=== PATIENT | female | born 1980 | race Caucasian/White ===

== ENCOUNTER 2025-03-22 06:28 | Emergency (ER) | payer OTHER, SELFPAY ==
[2025-03-22] VITALS (7 sets, daily range): BP systolic 127–135; BP diastolic 63–88; PULSE 73–128; RESP 16–22; TEMP 36.4–37.1; O2SAT 94–100
--- NOTE | ~2025-03-22 | CT_ITS ---
EXAMINATION: CT abdomen pelvis w con DATE: 03/22/2025 08:55 INDICATION: Nausea and vomiting. TECHNIQUE: Computed tomography (CT) of the abdomen and pelvis was performed with 100 cc Omnipaque 350 intravenous contrast. The dose-length product was 1580.03 mGy-cm. Automated exposure control and ite rative reconstruction technique were employed. COMPARISON: None. FINDINGS: Lung bases unremarkable. No significant pleural or pericardial effusion. Heart size normal. There is a 3.3 cm low-density mass of the right hepatic lobe adjacent to the falciform ligament. The re is a smaller adjacent mass, not well demonstrated. The spleen, pancreas, adrenal glands and kidney s are unremarkable. Small fat-containing umbilical hernia. No abnormal pelvic masses or fluid collect ions. Colonic diverticulosis without evidence for diverticulitis. No free air. No focal lytic or paddy tic lesions. Mild lumbar spondylosis. Mild thickening of the distal esophagus, suspicious for esophag itis. IMPRESSION: 1. Hypovascular 3.3 cm liver mass of the right hepatic lobe. Recommend correlation with MRI of the ab domen without and with contrast for further assessment. Cannot exclude malignancy. 2: Mild thickening of the distal esophagus, suspicious for esophagitis. Reviewed, dictated and finalized at location B. IMPRESSION: 1. Hypovascular 3.3 cm liver mass of the right hepatic lobe. Recommend correlat ion with MRI of the abdomen without and with contrast for further assessment. C annot exclude malignancy. 2: Mild thickening of the distal esophagus, suspicious for esophagitis.
--- OUTSIDE RECORDS SUMMARY | 2025-03-22 06:31 | XMS_ITS | Continuity of Care Document ---
Author Organization [facility] Address [address] [place] [address] Phone Care Team Providers Care Facilities Mechanical Design Engineer Name Role Phone Jennie Garcia Unavailable Unavailable Advance Directives Directive Yes / No Effective Date File Name No Information Encounters Encounter Description Practice Location Reason(s) For Visit Diagnoses Date Provider Providers Copied on Encounter [facility], [address], [place], [place], [id number], [place] tel:[phone] [address] No Information Radha Schneider. [address], [place], [place], [address]. tel:[phone] Family History Family Member Type Diagnosis Age At Onset No Information Payers Payer name Insurance type Covered libertarian ID Authorgeraldine kimble(s) Medicaid Partners [facility] [id number] Social History Type Description Quantity Date Captured Comments Sex Female Smoking Status No Information Chief Complaint And Reason For Visit No Information Reason For Referral Reason For Referral No Information History Of Present Illness Encounter Date Complaint History Of Prese nt Illness No Information Functional Status Date Functional Assessmen t No Information Instructions Date Instruction Additional Infor mation No Information Assessments Type Assessment Date No Information Patient Care Teams Name Effective Dates (start - stop) Status Members No Information
--- OUTSIDE RECORDS SUMMARY | 2025-03-22 06:32 | XMS_ITS | Clinical Summary ---
Author Organization [facility] Address [address] [address] [place] [address] Care Team Providers Care Legal Entity Controller Name Role Phone Unavailable Primary Care Provider Unavailabl e Allergies No known active allergies Medications Insulin NPH Human, Isophane, (HUMULIN N SC) Inject into the skin. Active metformin (FORTAMET) 1000 mg (OSM) 24 hr tablet Take 1,000 mg by mouth with breakfast. Active Ninmeesz-Uop-Ya- FA ( VITAMINS PO) Take by mouth. Active aspirin (ASPIRIN) 81 mg chewable tablet Chew 81 mg by mouth daily. Active magnesium 30 MG tablet Take 30 mg by mouth 2 (two) times daily. Active Active Problems No known active problems Social History Tobacco Use Types Packs/Day Years Used Date Smoking Tobacco: Never Smokeless Tobacco: Never Comments Unknown Sex and Gender Information Value Date Recorded Sex Assigned at Not on file Legal Sex Female 4:21 PM EDT Gender Identity Not on file Sexual Orientation Not on file Plan of Treatment Health Maintenance Due Date Last Done Comments Cologuard 1979 Colonoscopy 1979 Colorectal Cancer Screening 1979 FOBT/IFOB 1979 Mammogram 1979 Pap Smear 1979 DTaP/Tdap/Td Vaccines (1 - Tdap) 1998 COVID-19 Vaccine (2023-2 5 season) 2024 Zoster Vaccine (1 of 2) 2029 HPV Vaccine Aged Out No longer eligi ble based on patient's age to complete this topic Hepatitis A Vaccine Aged Out No longe r eligible based on patient's age to complete this topic Meningococcal B Vaccine Aged Out No l onger eligible based on patient's age to complete this topic Meningococcal Conjugate Vaccine Aged Out No longer eligible based on patient's age to complete this topic Pneumococcal Vaccine: Pediat rics and At Risk Patients Aged Out No longer eligible based on patient's age to complete this topic Insurance [facility] Member Subscriber Plan / Payer ( fective 2017-Present) Name:Maude Burnette Relation to Subscriber:Spouse Name:CHANTAL BURNETTE Date of :1982 Address: [address] [place] [address] Payer ID:[id number] (NAIC) Group ID:[id number] Type:Not on file Address: [facility] [id number] [place] [id number] [facility]
--- OUTSIDE RECORDS SUMMARY | 2025-03-22 06:32 | XMS_ITS | Encounter Summary ---
Author Organization [facility] Address [address] [place] [address] Care Team Providers Care Gate Supervisor Name Role Phone Perlita Peoples Primary Care Provider [phone] Encounter Details Date Type Department Care Team (Late st Contact Info) Description 01/06/2023 Conversion Orders Only [employer] HISTORICAL DATA CONVERSIONS [address] [id number] Social History Tobacco Use Types Packs/Day Years Used Date Smoking Tobacco: Never Assessed Comments Unknown Sex and Gender Information Value Date Recorded Sex Assigned at Female 01/10/2024 8:26 AM EDT Legal Sex Female 9:07 AM EST Gender Identity Not on file Sexual Orientation Not on file documented as of this encounter Functional Status * Over the past 2 weeks, how often have you been bothered by any of the following problems? Question Answer Date of Assessment Author Patient Health Questionnaire-2 Score 0 01/06/2023 8:51 AM EDT Int, [facility] Incom ing Clinical Documentation Flowsheets Conversion 3 * Little interest or pleasure in doing things Answer Date of Assessment Author Not at all 01/06/2023 8:51 AM EDT [facility] Incoming Clinical Documentation Flowsheets Conversion 3 * Feeling down, depressed, or hopeless Answer Date of Assessment Author Not at all 01/06/2023 8:51 AM EDT [facility] Incoming Clinical Documentation Flowsheets Conversion 3 documented as of this encounter Plan of Treatment Not on file documented as of this encounter Visit Diagnoses Not on filedocumented in this encounter Care Teams Gate Supervisor Relationship Specialty Start Date End Date Perlita Peoples PA [address] [address] PCP - General Physician Bunk House Worker 03/02/22 documented as of this encounter
--- OUTSIDE RECORDS SUMMARY | 2025-03-22 06:32 | XMS_ITS | Encounter Summary ---
Author Organization [employer] Address [address] [place] [address] Care Team Providers Care Sewer Pipe Offbearer Name Role Phone Perlita Peoples Primary Care Provider +1- [phone] Encounter Details Date Type Department Care Team (Late st Contact Info) Description 03/28/2022 Conversion Orders Only [employer] HISTORICAL DATA CONVERSIONS [email or web address] [place] [address] Social History Tobacco Use Types Packs/Day Years Used Date Smoking Tobacco: Never Assessed Comments Unknown Sex and Gender Information Value Date Recorded Sex Assigned at Female 01/10/2024 8:26 AM EDT Legal Sex Female 9:07 AM EST Gender Identity Not on file Sexual Orientation Not on file documented as of this encounter Plan of Treatment Not on file documented as of this encounter Visit Diagnoses Not on filedocumented in this encounter Care Teams Sewer Pipe Offbearer Relationship Specialty Start Date End Date Perlita Peoples PA [address] [place] [address] PCP - General Physician Overhauler Helper 03/02/22 documented as of this encounter
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
--- OUTSIDE RECORDS SUMMARY | 2025-03-22 06:32 | XMS_ITS | Clinical Summary ---
Author Organization [facility] Address [address] [place] [address] Care Team Providers Care Field Handyman Name Role Phone Perlita Peoples Primary Care Provider +1- [phone] Allergies No known active allergies Medications buPROPion (WELLBUTRIN XL) 300 mg 24 hr tablet Take 450 mg by mouth Once Daily. 2 Active atorvastatin (LIPITOR) 20 mg tablet Take 20 mg by mouth Once Daily. 2 Active metFORMIN (GLUCOPHAGE) 500 mg tablet Take 500 mg by mouth. 2 Active insulin detemir U-100 (Levemir U-100 Insulin) 100 unit/mL injection Inject 68 Units under the skin nightly. 2 Active lisinopriL (PRINIVIL) 2.5 mg tablet Take 2.5 mg by mouth Once Daily. 2 Active Mounjaro 2.5 mg/0.5 mL subcutaneous injection ADMINISTER 2.5 MG UNDER THE SKIN 1 TIME WEEKLY FOR 4 WEEKS. INCREASE TO 5 MG WEEKLY 4 Active sertraline (ZOLOFT) 100 mg tablet Take 1 tablet by mouth daily. 4 Active Active Problems Problem Noted Date Diagnosed Date Leukocytosis 07/12/2023 Thrombocytosis 03/26/2022 Family History Relation Status Comments Father Mother Alive Social History Tobacco Use Types Packs/Day Years Used Date Smoking Tobacco: Former Smokeless Tobacco: Never Comments:quit since 2008 Alcohol Use Standard Drinks/Week Comments Never 0 (1 standard drink = 0.6 oz pur e alcohol) PHQ-2 Answer Date Recorded Patient Health Questionnaire-2 Score 6 02/05/2024 PHQ-9 Answer Date Recorded Patient Health Questionnaire-9 Score 15 02/05/2024 Comments Unknown Sex and Gender Information Value Date Recorded Sex Assigned at Female 01/10/2024 8:26 AM EDT Legal Sex Female 9:07 AM EST Gender Identity Not on file Sexual Orientation Not on file Last Filed Vital Signs Vital Sign Reading Time Taken Comments Blood Pressure 121/63 02/05/2024 9:04 AM EDT Pulse 64 02/05/2024 9:04 AM EDT Temperature 36.3 C (97.3 F) 02/05/2024 9:04 AM EDT Respiratory Rate 18 02/05/2024 9:04 AM EDT Oxygen Saturation 100% 02/05/2024 9:04 AM EDT Inhaled Oxygen Concentration - - Weight 145 kg (320 lb) 02/05/2024 9:04 AM EDT Height 167.6 cm (5' 6) 02/05/2024 9:04 AM EDT Body Mass Index 51.65 02/05/2024 9:04 AM EDT Plan of Treatment Health Maintenance Due Date Last Done Comments Comprehensive Annual Visit 1979 HPV Vaccines (1 - 3-dose series) 1994 HIV Screening 1997 Hepatitis C Screening 1997 DTaP/Tdap/Td Vaccines (1 - Tdap) 1998 Hepatitis B Vaccines (1 of 3 - 19+ 3-dose series) 1998 Pneumococcal Vaccine: Pediatrics (0 to 5 years) and At-Risk Patients (6-49 Years) (1 of 2 - PCV) 1998 Cervical Cancer Screening 2000 PAP SMEAR 2000 HPV/Cotest 2009 Breast Cancer Screening (Mammogram) 2019 COVID-19 Vaccine (1 - season) 2024 CT Colonography 2024 Colonoscopy 2024 Colorectal Cancer Screening 2024 FIT-DNA 2024 FIT 2024 FOBT 2024 Sigmoidoscopy 2024 Depression Monitoring 08/06/2024 02/05/2024 Diabetes Screening 02/04/2025 02/05/2024, 1 , 01/06/2023, Additional history exists Influenza Vaccine (Season Ended) 2025 ZOSTER VACCINE (1 of 2) 2029 Adult RSV (60+ Years or ) (1 - 1-dose 75+ series) 2054 Depression Screening Discontinued 02/05/2024, 02/05/20 24 HIB Vaccines Aged Out No longer eligi ble based on patient's age to complete this topic Hepatitis A Vaccines Aged Out No long er eligible based on patient's age to complete this topic IPV Vaccines Aged Out No longer eligi ble based on patient's age to complete this topic Meningococcal B Vaccine Aged Out No l onger eligible based on patient's age to complete this topic Meningococcal Conjugate (ACWY) Vaccine Aged Out No longer eligible based on patient's age to complete this topic Rotavirus Vaccines Aged Out No longer eligible based on patient's age to complete this topic Procedures Procedure Name Priority Date/Time Associated Diagnosis Comments COMPREHENSIVE METABOLIC PANEL STAT 02/05/2024 8:58 AM EDT Thrombocytosis from Last 3 Months or Most Recently Relevant to Health Maintenance Results * (ABNORMAL) Comprehensive Metabolic Panel (02/05/2024 8:58 AM EDT) Sodium 138 136 - 145 mmol/L 02/05/2024 5:13 PM EDT [facility](CLIA# [id number]) Potassium 4.2 3.5 - 5.1 mmol/L 02/05/2024 5:13 PM EDT [facility](CLIA# [id number]) Comment:NO VISIBLE HEMOLYSIS Chloride 104 98 - 107 mmol/L 02/05/2024 5:13 PM EDT [facility](CLIA# [id number]) CO2 26 21 - 31 mmol/L 02/05/2024 5:13 PM EDT [facility](CLIA# [id number]) Anion Gap 8 6 - 14 mmol/L 02/05/2024 5:13 PM EDT [facility](CLIA# [id number]) Glucose, Random 123(H) 70 - 99 mg/dL 02/05/2024 5:13 PM EDT [facility](CLIA# [id number]) Blood Urea Nitrogen (BUN) 9 7 - 25 mg/dL 02/05/2024 5:13 PM EDT [facility](CLIA# [id number]) Creatinine 0.60 0.60 - 1.20 mg/dL 02/05/2024 5:13 PM EDT [facility](CLIA# [id number]) eGFR >90 >59 mL/min/1. 73m2 02/05/2024 5:13 PM EDT [facility](CLIA# [id number]) Comment: GFR estimated by CKD-EPI equations([facility] 2020). Recommend confirmation of Cr-based eGFR by using Cys-based eGFR and other filtration markers (if applicable) in complex cases and clinical decision-making, as needed. Albumin 4.1 3.5 - 5.7 g/dL 02/05/2024 5:13 PM EDT [facility](CLIA# [id number]) Total Protein 6.8 6.4 - 8.9 g/dL 02/05/2024 5:13 PM EDT [facility](CLIA# [id number]) Bilirubin, Total 0.2(L) 0.3 - 1.0 mg/dL 02/05/2024 5:13 PM EDT [facility](CLIA# [id number]) Alkaline Phosphatase (ALP) 71 34 - 104 U/L 02/05/2024 5:13 PM EDT [facility](CLIA# [id number]) Aspartate Aminotransferase (AST) 11(L) 13 - 39 U/L 02/05/2024 5:13 PM EDT [facility](CLIA# [id number]) Alanine Aminotransferase (ALT) 10 7 - 52 U/L 02/05/2024 5:13 PM EDT [facility](CLIA# [id number]) Calcium 8.8 8.6 - 10.3 mg/dL 02/05/2024 5:13 PM EDT [facility](CLIA# [id number]) BUN/Creatinine Ratio 01/08 5:13 PM EDT [facility](CLIA# [id number]) Comment:Creatinine is normal , ratio is not clinically indicated. Blood Venous structure / Unknown Venipuncture / Unknown 02/05/2024 8:58 AM EDT 02/05/2024 8:58 AM EDT us Maribel Ruvalcaba MD LAB BLOOD ORDERABLES Final Re sult [facility](CLIA# [id number]) [place] [address] from Last 3 Months or Most Recently Relevant to Health Maintenance Insurance [place] [employer] [place] [employer] Care Teams Field Handyman Relationship Specialty Start Date End Date Perlita Peoples PA [address] [address] PCP - General Physician Reception Specialist 03/02/22
--- OUTSIDE RECORDS SUMMARY | 2025-03-22 06:32 | XMS_ITS | Clinical Summary ---
Author Organization [facility] visits prior to 12/09/2023. [place] [address] Care Team Providers Care Ad Clerk Name Role Phone Perlita Peoples PA-C Primary Care Provider + Maribel Ruvalcaba MD Unavailable Allergies No known active allergies Medications Medication Sig Dispensed Refills Start Date End Date Status buPROPion XL (WELLBUTRIN XL) 300 MG 24 hr tablet Take 450 mg by mouth daily. 0 Active atorvastatin (LIPITOR) 20 MG tablet Take 1 tablet (20 mg total) by mouth daily. 0 Activ e phentermine (ADIPEX-P) 15 MG capsule Take 1 capsule (15 mg total) by mouth every morning. 0 Active metFORMIN (GLUCOPHAGE) 500 MG tablet Take 1 tablet (500 mg total) by mouth. 0 Active insulin detemir (LEVEMIR) 100 unit/mL injection Inject 68 Units into the skin nightly. 0 Active lisinopriL (PRINIVIL,ZESTRIL) 2.5 MG tablet Take 1 tablet (2.5 mg total) by mouth daily. 0 Activ e TRULICITY 1.5 mg/0.5 mL PnIj INJECT 1.5 MG SUBCUTANEOUSLY ONCE A WEEK (SAME DAY OF EACH WEEK) 0 11/11/2022 Active Active Problems Problem Noted Date Diagnosed Date Leukocytosis 07/12/2023 Thrombocytosis 03/26/2022 Family History Relation Status Comments Father Mother Alive Social History Tobacco Use Types Packs/Day Years Used Date Smoking Tobacco: Former Smokeless Tobacco: Never Comments:quit since 2008 Alcohol Use Standard Drinks/Week Comments Never 0 (1 standard drink = 0.6 oz pur e alcohol) PHQ-2 Answer Date Recorded SDRI PHQ2 SCORE 0 09/13/2023 Sex and Gender Information Value Date Recorded Sex Assigned at Not on file Gender Identity Not on file Sexual Orientation Not on file Last Filed Vital Signs Vital Sign Reading Time Taken Comments Blood Pressure 134/70 09/13/2023 9:01 AM EST Pulse 87 09/13/2023 9:01 AM EST Temperature 36.3 C (97.3 F) 09/13/2023 9:01 AM EST Respiratory Rate 18 09/13/2023 9:01 AM EST Oxygen Saturation 96% 09/13/2023 9:01 AM EST Inhaled Oxygen Concentration - - Weight 145.6 kg (320 lb 14.4 oz) 09/13/2023 9:01 AM EST Height 167.6 cm (5' 6) 09/13/2023 9:01 AM EST Body Mass Index 51.79 09/13/2023 9:01 AM EST Plan of Treatment Health Maintenance Due Date Last Done Comments COLONOSCOPY 2024 INFLUENZA VACCINE 05/09/2025 Care Teams Ad Clerk Relationship Specialty Start Date End Date Perlita Peoples PA-C [address] [place] [address] PCP - General Physician Kiln Pusher 03/02/22 Maribel Ruvalcaba MD [address] [place] [address] Oncology Physician Hematology and Oncology 03/26/22
--- OUTSIDE RECORDS SUMMARY | 2025-03-22 06:32 | XMS_ITS | Referral Summary ---
Author Organization [facility] Address [address] [place] [address] Care Team Providers Care English And Reading Instructor Name Role Phone Perlita Peoples Primary Care Provider [phone] Allergies No known active allergies Medications buPROPion [...] Date Diagnosed Date Leukocytosis 07/12/2023 Thrombocytosis 03/26/2022 Social History Tobacco Use Types Packs/Day Years [...] 02/05/2024 9:04 AM EDT Plan of Treatment Not on file Procedures Procedure Name Priority Date/Time Associated Diagnosis Comments COMPREHENSIVE METABOLIC PANEL STAT 02/05/2024 8:58 AM EDT Thrombocytosis from Last 3 Months or Most Recently Relevant to Health Maintenance Results * (ABNORMAL) Comprehensive Metabolic Panel (02/05/2024 8:58 AM EDT) Sodium 138 136 - 145 mmol/L 02/05/2024 5:13 PM EDT [facility](CLIA# [id number]) Potassium 4.2 3.5 - 5.1 mmol/L 02/05/2024 5:13 PM EDT [facility](CLIA# [id number]) Comment:NO VISIBLE HEMOLYSIS Chloride 104 98 - 107 mmol/L 02/05/2024 5:13 PM EDT [facility](CLIA# [id number]) CO2 26 21 - 31 mmol/L 02/05/2024 5:13 PM EDT [facility](CLIA# [id number]) Anion Gap 8 6 - 14 mmol/L 02/05/2024 5:13 PM EDT [facility](CLIA# [id number]) Glucose, Random 123(H) 70 - 99 mg/dL 02/05/2024 5:13 PM EDT [facility](CLIA# [id number]) Blood Urea Nitrogen (BUN) 9 7 - 25 mg/dL 02/05/2024 5:13 PM EDT [facility](CLIA# [id number]) Creatinine 0.60 0.60 - 1.20 mg/dL 02/05/2024 5:13 PM EDT [facility](CLIA# [id number]) eGFR >90 >59 mL/min/1. 73m2 02/05/2024 5:13 PM EDT [facility](CLIA# [id number]) Comment: GFR estimated by CKD-EPI equations([facility] 2020). Recommend confirmation of Cr-based eGFR by using Cys-based eGFR and other filtration markers (if applicable) in complex cases and clinical decision-making, as needed. Albumin 4.1 3.5 - 5.7 g/dL 02/05/2024 5:13 PM EDT [facility](CLIA# [id number]) Total Protein 6.8 6.4 - 8.9 g/dL 02/05/2024 5:13 PM EDT [facility](CLIA# [id number]) Bilirubin, Total 0.2(L) 0.3 - 1.0 mg/dL 02/05/2024 5:13 PM EDT [facility](CLIA# [id number]) Alkaline Phosphatase (ALP) 71 34 - 104 U/L 02/05/2024 5:13 PM EDT [facility](CLIA# [id number]) Aspartate Aminotransferase (AST) 11(L) 13 - 39 U/L 02/05/2024 5:13 PM EDT [facility](CLIA# [id number]) Alanine Aminotransferase (ALT) 10 7 - 52 U/L 02/05/2024 5:13 PM EDT [facility](CLIA# [id number]) Calcium 8.8 8.6 - 10.3 mg/dL 02/05/2024 5:13 PM EDT [facility](CLIA# [id number]) BUN/Creatinine Ratio 01/08 5:13 PM EDT [facility](CLIA# [id number]) Comment:Creatinine is normal , ratio is not clinically indicated. Blood Venous structure / Unknown Venipuncture / Unknown 02/05/2024 8:58 AM EDT 02/05/2024 8:58 AM EDT us Maribel Ruvalcaba MD LAB BLOOD ORDERABLES Final Re sult [facility](CLIA# [id number]) [place] [address] from Last 3 Months or Most Recently Relevant to Health Maintenance Insurance [place] [employer] [place] [employer] Care Teams English And Reading Instructor Relationship Specialty Start Date End Date Perlita Peoples PA [address] [place] [id number] PCP - General Physician Supervisor Color Making 03/02/22
--- NOTE | 2025-03-22 06:34 | ED.NAVMDI ---
HPI - Nausea/Vomiting/Diarrhea General Chief complaint: Nausea/Vomiting/Diarrhea <Aleksandr Wilder MD - Last Filed: 03/22/25 06:57> Stated complaint: vomiting <Aleksandr Wilder MD - Last Filed: 03/22/25 06:57> Time Seen by Provider: 03/22/25 06:34 <Aleksandr Wilder MD - Last Filed: 03/22/25 06:57> Source: patient <Aleksandr Wilder MD - Last Filed: 03/22/25 06:57> Mode of arrival: ambulatory <Aleksandr Wilder MD - Last Filed: 03/22/25 06:57> Limitations: no limitations <Aleksandr Wilder MD - Last Filed: 03/22/25 06:57> History of Present Illness HPI Narrative: 44-year-old female with a history of diabetes mellitus diagnosed in 2016, hypertension presents to the ED with a 24 history of -- nausea with multiple episodes of vomiting. She is unable to keep anything. No abdominal pain. No diarrhea. No fever or chills. Patient thinks that she could have eaten spoiled food 2 days ago. Patient is on 1 jar of 15 mg weekly along with Lantus and metformin. prior history of diabetic ketoacidosis. <Aleksandr Wilder MD - Last Filed: 03/22/25 06:57> MD elicited complaint: nausea and vomiting <Aleksandr Wilder MD - Last Filed: 03/22/25 06:57> Onset (ago): day(s) ( One day) <Aleksandr Wilder MD - Last Filed: 03/22/25 06:57> Description of vomiting: watery <Aleksandr Wilder MD - Last Filed: 03/22/25 06:57> Associated nausea: Yes <Aleksandr Wilder MD - Last Filed: 03/22/25 06:57> Exacerbating factors: none <Aleksandr Wilder MD - Last Filed: 03/22/25 06:57> Relieving factors: none <MD Daniel Lopez Last Filed: 03/22/25 06:57> Associated symptoms: denies other symptoms, loss of appetite and nausea/vomiting <Aleksandr Wilder MD - Last Filed: 03/22/25 06:57> Related Data Home medications: Home Medications ?Medication ?Instructions ?Recorded ?Confirmed ?Last Taken ?Type atorvastatin 20 mg tablet 20 mg 03/22/25 Unknown History bupropion HCl 300 mg 24 hr tablet, 300 mg PO 03/22/25 Unknown History extended release insulin glargine 100 unit/mL (3 44 unit subcut BID 03/22/25 03/22/25 Unknown History mL) subcutaneous pen (Lantus Solostar U-100 Insulin) lisdexamfetamine 10 mg capsule 50 mg 03/22/25 Unknown History (Vyvanse) lisdexamfetamine 30 mg capsule mg 03/22/25 Unknown History (Vyvanse) lisinopril 2.5 mg tablet 2.5 mg 03/22/25 Unknown History metformin 500 mg tablet 1,000 mg PO BID 03/22/25 03/22/25 Unknown History sertraline 100 mg tablet 100 mg 03/22/25 Unknown History tirzepatide 15 mg/0.5 mL 15 mg subcut WEEKLY 03/22/25 03/22/25 Unknown History subcutaneous pen injector (Mounjaro) <Aleksandr Wilder MD - Last Filed: 03/22/25 06:57> Allergies/Adverse reactions: Allergies Allergy/AdvReac Type Severity Reaction Status Date / Time No Known Allergies Allergy Verified 03/22/25 06:40 <Aleksandr Wilder MD - Last Filed: 03/22/25 06:57> Review of Systems Review of Systems: All systems reviewed & are unremarkable except as noted in HPI and below <Aleksandr Wilder MD - Last Filed: 03/22/25 06:57> Constitutional: Constitutional: Reports as per HPI and Reports no additional constitutional complaints <Aleksandr Wilder MD - Last Filed: 03/22/25 06:57> Eyes: Eyes: Reports as per HPI and Reports no additional eye complaints <Aleksandr Wilder MD - Last Filed: 03/22/25 06:57> ENT: Reports system reviewed and no additional complaints, except as documented and Reports as per HPI <Aleksandr Wilder MD - Last Filed: 03/22/25 06:57> Cardiovascular: Cardiovascular: Reports as per HPI and Reports no additional cardiovascular complaints <Aleksandr Wilder MD - Last Filed: 03/22/25 06:57> Respiratory: Respiratory: Reports as per HPI and Reports no additional respiratory complaints <Aleksandr Wilder MD - Last Filed: 03/22/25 06:57> Gastrointestinal: Gastrointestinal: Reports as per HPI, Reports no additional gastrointestinal complaints, Reports nausea and Reports vomiting <Aleksandr Wilder MD - Last Filed: 03/22/25 06:57> Genitourinary: Genitourinary: Reports no additional female genitourinary complaints <Aleksandr Wilder MD - Last Filed: 03/22/25 06:57> Musculoskeletal: Musculoskeletal: Reports no additional musculoskeletal complaints <Aleksandr Wilder MD - Last Filed: 03/22/25 06:57> Integumentary/Breasts: Skin/Breast: Reports system reviewed and no additional complaints, except as docu <Aleksandr Wilder MD - Last Filed: 03/22/25 06:57> Neurologic: Reports system reviewed and no additional complaints, except as documented <Aleksandr Wilder MD - Last Filed: 03/22/25 06:57> Psychiatric: Psychiatric: Reports no additional psychiatric complaints <Aleksandr Wilder MD - Last Filed: 03/22/25 06:57> Endocrine: Endocrine: Reports no additional endocrine complaints <Aleksandr Wilder MD - Last Filed: 03/22/25 06:57> Hematologic/Lymphatic: Hematologic/Lymphatic: Reports no additional hematologic/lymphatic complaints <Aleksandr Wilder MD - Last Filed: 03/22/25 06:57> Allergic/Immunologic: Allergic/Immunologic: Reports no additional allergic/immunologic complaints <Aleksandr Wilder MD - Last Filed: 03/22/25 06:57> PMFSH Past Medical History Medical History: Medical History (Updated 03/22/25 @ 09:46 by Reji Reynoso MD) Hypertension Hyperglycemia due to type 2 diabetes mellitus <Aleksandr Wilder MD - Last Filed: 03/22/25 06:57> Surgical History Surgical History: Surgical History (Updated 03/22/25 @ 06:50 by Aleksandr Wilder MD) Previous section <Aleksandr Wilder MD - Last Filed: 03/22/25 06:57> Exam Narrative: vitals are stable <Aleksandr Wilder MD - Last Filed: 03/22/25 06:57> Const: General: no acute distress <Aleksandr Wilder MD - Last Filed: 03/22/25 06:57> Nutritional Appearance: well nourished <Aleksandr Wilder MD - Last Filed: 03/22/25 06:57> Orientation/consciousness: patient oriented x3 <Aleksandr Wilder MD - Last Filed: 03/22/25 06:57> Limitations: no limitations <Aleksandr Wilder MD - Last Filed: 03/22/25 06:57> HENMT: Head: normal to inspection <Aleksandr Wilder MD - Last Filed: 03/22/25 06:57> Ears: external ears normal <Aleksandr Wilder MD - Last Filed: 03/22/25 06:57> Face/Nose/Sinus: Normal external nose present <Aleksandr Wilder MD - Last Filed: 03/22/25 06:57> Face and sinus: normal facial exam <Aleksandr Wilder MD - Last Filed: 03/22/25 06:57> Mouth: Yes Normal oral and palatal mucosa present <Aleksandr Wilder MD - Last Filed: 03/22/25 06:57> Throat: posterior oropharynx normal <Aleksandr Wilder MD - Last Filed: 03/22/25 06:57> Eyes: Conjunctivae: conjunctivae normal <Aleksandr Wilder MD - Last Filed: 03/22/25 06:57> Cornea: corneas normal <Aleksandr Wilder MD - Last Filed: 03/22/25 06:57> Pupils: Equal, round and reactive pupils present <Aleksandr Wilder MD - Last Filed: 03/22/25 06:57> EOM: EOMs intact bilaterally <Aleksandr Wilder MD - Last Filed: 03/22/25 06:57> Direct Ophthalmoscopy: no photophobia <Aleksandr Wilder MD - Last Filed: 03/22/25 06:57> Neck: Neck: normal visual inspection, no lymphadenopathy and no meningeal signs <Aleksandr Wilder MD - Last Filed: 03/22/25 06:57> Chest: Chest palpation & inspection: normal inspection of the chest <Aleksandr Wilder MD - Last Filed: 03/22/25 06:57> Resp: Effort & Inspection: normal respiratory effort <Aleksandr Wilder MD - Last Filed: 03/22/25 06:57> Auscultation: clear to auscultation bilaterally <Aleksandr Wilder MD - Last Filed: 03/22/25 06:57> Cardio: Rate: regular rate <Aleksandr Wilder MD - Last Filed: 03/22/25 06:57> Rhythm: regular rhythm <Aleksandr Wilder MD - Last Filed: 03/22/25 06:57> GI: GI Palp: Yes Soft to palpation <Aleksandr Wilder MD - Last Filed: 03/22/25 06:57> Auscultation: normal bowel sounds <Aleksandr Wilder MD - Last Filed: 03/22/25 06:57> Other: epigastric tenderness without any rigidity /rebound. <Aleksandr Wilder MD - Last Filed: 03/22/25 06:57> : General: Yes no CVA tenderness <Aleksandr Wilder MD - Last Filed: 03/22/25 06:57> Back/Spine/Pelvis: Back: no CVA tenderness <Aleksandr Wilder MD - Last Filed: 03/22/25 06:57> Skin: General skin exam: normal color <Aleksandr Wilder MD - Last Filed: 03/22/25 06:57> Rashes: no rashes <Aleksandr Wilder MD - Last Filed: 03/22/25 06:57> Wounds: no wounds <Aleksandr Wilder MD - Last Filed: 03/22/25 06:57> Neuro: General: patient oriented x3 <Aleksandr Wilder MD - Last Filed: 03/22/25 06:57> Cranial nerves: Yes Nystagmus not present <Aleksandr Wilder MD - Last Filed: 03/22/25 06:57> Speech: normal speech <Aleksandr Wilder MD - Last Filed: 03/22/25 06:57> Gait exam (Neuro): Normal gait present <Aleksandr Wilder MD - Last Filed: 03/22/25 06:57> Extrem: General: normal to inspection and no clubbing, cyanosis or edema <Aleksandr Wilder MD - Last Filed: 03/22/25 06:57> Psych: Mental Status: mental status grossly normal <Aleksandr Wilder MD - Last Filed: 03/22/25 06:57> Affect: normal affect <Aleksandr Wilder MD - Last Filed: 03/22/25 06:57> Attitude: cooperative <Aleksandr Wilder MD - Last Filed: 03/22/25 06:57> Course Course Emergency Course: Nausea and vomiting for 24 hours. Diabetes mellitus <Aleksandr Wilder MD - Last Filed: 03/22/25 06:57> Vital Signs Vital signs: Vital Signs Temperature 36.4 C 03/22/25 06:28 Pulse Rate 128 H 03/22/25 06:28 Respiratory Rate 22 H 03/22/25 06:28 Blood Pressure 130/88 03/22/25 06:28 Pulse Oximetry 96 03/22/25 06:28 Oxygen Delivery Room Air 03/22/25 06:28 Temperature 37.1 C 03/22/25 09:38 Pulse Rate 73 03/22/25 09:38 Respiratory Rate 16 03/22/25 09:38 Blood Pressure 129/74 03/22/25 09:38 Pulse Oximetry 97 03/22/25 09:38 Oxygen Delivery Room Air 03/22/25 09:38 <Aleksandr Wilder MD - Last Filed: 03/22/25 06:57> Vital Signs Temperature 36.4 C 03/22/25 06:28 Pulse Rate 128 H 03/22/25 06:28 Respiratory Rate 22 H 03/22/25 06:28 Blood Pressure 130/88 03/22/25 06:28 Pulse Oximetry 96 03/22/25 06:28 Oxygen Delivery Room Air 03/22/25 06:28 Temperature 37.1 C 03/22/25 09:38 Pulse Rate 73 03/22/25 09:38 Respiratory Rate 16 03/22/25 09:38 Blood Pressure 129/74 03/22/25 09:38 Pulse Oximetry 97 03/22/25 09:38 Oxygen Delivery Room Air 03/22/25 09:38 <Reji Reynoso MD - Last Filed: 03/22/25 10:30> MDM - Nausea/Vomiting/Diarrhea Lab Data Result diagrams: 03/22/25 07:16 03/22/25 07:16 <Aleksandr Wilder MD - Last Filed: 03/22/25 06:57> Labs: Lab Results 03/22/25 03/22/25 03/22/25 Range/Units 06:35 07:16 09:05 WBC 22.0 H (4.8-10.8) K/mm3 RBC 4.94 (4.20-5.40) M/mm3 Hgb 14.6 (12.0-15.0) g/dL Hct 43.5 (35.0-49.0) % MCV 88.1 (78.0-102.0) fL MCH 29.6 (27.0-31.0) pg MCHC 33.6 (32-36) g/dL RDW 12.9 (11.6-14.4) % Plt Count 646 H (150-420) K/mm3 MPV 9.5 (9.2-11.8) fl Immature Gran % (Auto) 0.6 H (0.0-0.0) % Neut % (Auto) 85.4 H (50.0-70.0) % Lymph % (Auto) 7.0 L (18.0-42.0) % [place] % (Auto) 6.5 (2.0-11.0) % Eos % (Auto) 0.3 L (1.0-6.0) % Baso % (Auto) 0.2 (0.0-1.0) % Lymph # (Auto) 1.55 (1.10-4.50) K/mm3 [place] # (Auto) 1.44 H (0.10-0.90) K/mm3 Eos # (Auto) 0.06 (0.02-0.50) K/mm3 Baso # (Auto) 0.05 (0.00-0.10) K/mm3 Abs Immat Gran (auto) 0.14 H (0.00-0.00) K/mm3 Absolute Neuts (auto) 18.86 H (1.70-7.20) K/mm3 Absolute Nucleated RBC 0.00 (0.00-0.00) K/mm3 Band Neutrophils % 0 (0-6) % Nucleated RBC % 0.0 (0-0.0) % Platelet Estimate Increased (Adequate) % Immature Plt Fraction 1.2 (1.0-7.0) % Schistocytes None seen Sodium 137 (137-145) mmol/L Potassium 3.6 (3.4-5.0) mmol/L Chloride 103 (98-107) mmol/L Carbon Dioxide 21 L (22-30) mmol/L Anion Gap 13 H (4-12) mmol/L BUN 15 (7-17) mg/dL Creatinine 0.88 (0.7-1.0) mg/dL Estim Creat Clear Calc 104 ml/min Estimated GFR > 60 (59 - ) Glucose 206 H (65-110) mg/dL POC Capillary Glucose 224 H (65-105) mg/dl Calculated Osmolality 290 (285-295) mOsm/kg Lactic Acid 2.0 (0.4-2.0) mmol/L Calcium 9.1 (8.4-10.2) mg/dL Total Bilirubin 0.7 (0.2-1.3) mg/dL AST 35 (14-36) U/L ALT 29 (6-35) U/L Alkaline Phosphatase 105 (38-126) U/L Total Creatine Kinase 250 H (30-135) U/L Troponin I < 0.012 (0.000-0.034) ng/mL Total Protein 8.5 H (6.3-8.2) g/dL Albumin 4.6 (3.5-5.1) g/dL Lipase 46 (23-300) U/L Urine Color Yellow (Yellow) Urine Appearance Clear (Clear) Urine pH 6.0 (5.0-8.0) Ur Specific [place] >= 1.030 H (1.010-1.020) Urine Protein 3+ H (Negative) Urine Glucose (UA) Negative (Negative) Urine Ketones 1+ H (Negative) Ur Blood (Man) 2+ H (Negative) Urine Nitrate Negative (Negative) Urine Bilirubin 2+ H (Negative) Urine Urobilinogen 0.2 (0.2-1.0) mg/dL Leukocyte Esterase Rfl Negative (Negative) LAURA/UL Urine RBC 11-20 H (0-2) /hpf Urine WBC 16-20 H (0-3) /hpf Ur Squamous Epith Cells Many H (Few) /hpf Urine Bacteria 1+ (None) /hpf Hyaline Casts 5-9 H (None) /lpf WBC Casts Present H (None) /lpf Ur Oval Fat Bodies None (None) /lpf <Aleksandr Wilder MD - Last Filed: 03/22/25 06:57> Lab Results 03/22/25 03/22/25 03/22/25 Range/Units 06:35 07:16 09:05 WBC 22.0 H (4.8-10.8) K/mm3 RBC 4.94 (4.20-5.40) M/mm3 Hgb 14.6 (12.0-15.0) g/dL Hct 43.5 (35.0-49.0) % MCV 88.1 (78.0-102.0) fL MCH 29.6 (27.0-31.0) pg MCHC 33.6 (32-36) g/dL RDW 12.9 (11.6-14.4) % Plt Count 646 H (150-420) K/mm3 MPV 9.5 (9.2-11.8) fl Immature Gran % (Auto) 0.6 H (0.0-0.0) % Neut % (Auto) 85.4 H (50.0-70.0) % Lymph % (Auto) 7.0 L (18.0-42.0) % [place] % (Auto) 6.5 (2.0-11.0) % Eos % (Auto) 0.3 L (1.0-6.0) % Baso % (Auto) 0.2 (0.0-1.0) % Lymph # (Auto) 1.55 (1.10-4.50) K/mm3 [place] # (Auto) 1.44 H (0.10-0.90) K/mm3 Eos # (Auto) 0.06 (0.02-0.50) K/mm3 Baso # (Auto) 0.05 (0.00-0.10) K/mm3 Abs Immat Gran (auto) 0.14 H (0.00-0.00) K/mm3 Absolute Neuts (auto) 18.86 H (1.70-7.20) K/mm3 Absolute Nucleated RBC 0.00 (0.00-0.00) K/mm3 Band Neutrophils % 0 (0-6) % Nucleated RBC % 0.0 (0-0.0) % Platelet Estimate Increased (Adequate) % Immature Plt Fraction 1.2 (1.0-7.0) % Schistocytes None seen Sodium 137 (137-145) mmol/L Potassium 3.6 (3.4-5.0) mmol/L Chloride 103 (98-107) mmol/L Carbon Dioxide 21 L (22-30) mmol/L Anion Gap 13 H (4-12) mmol/L BUN 15 (7-17) mg/dL Creatinine 0.88 (0.7-1.0) mg/dL Estim Creat Clear Calc 104 ml/min Estimated GFR > 60 (59 - ) Glucose 206 H (65-110) mg/dL POC Capillary Glucose 224 H (65-105) mg/dl Calculated Osmolality 290 (285-295) mOsm/kg Lactic Acid 2.0 (0.4-2.0) mmol/L Calcium 9.1 (8.4-10.2) mg/dL Total Bilirubin 0.7 (0.2-1.3) mg/dL AST 35 (14-36) U/L ALT 29 (6-35) U/L Alkaline Phosphatase 105 (38-126) U/L Total Creatine Kinase 250 H (30-135) U/L Troponin I < 0.012 (0.000-0.034) ng/mL Total Protein 8.5 H (6.3-8.2) g/dL Albumin 4.6 (3.5-5.1) g/dL Lipase 46 (23-300) U/L Urine Color Yellow (Yellow) Urine Appearance Clear (Clear) Urine pH 6.0 (5.0-8.0) Ur Specific [place] >= 1.030 H (1.010-1.020) Urine Protein 3+ H (Negative) Urine Glucose (UA) Negative (Negative) Urine Ketones 1+ H (Negative) Ur Blood (Man) 2+ H (Negative) Urine Nitrate Negative (Negative) Urine Bilirubin 2+ H (Negative) Urine Urobilinogen 0.2 (0.2-1.0) mg/dL Leukocyte Esterase Rfl Negative (Negative) LAURA/UL Urine RBC 11-20 H (0-2) /hpf Urine WBC 16-20 H (0-3) /hpf Ur Squamous Epith Cells Many H (Few) /hpf Urine Bacteria 1+ (None) /hpf Hyaline Casts 5-9 H (None) /lpf WBC Casts Present H (None) /lpf Ur Oval Fat Bodies None (None) /lpf <Reji Reynoso MD - Last Filed: 03/22/25 10:30> Imaging Data Radiologist's impression: Impressions Abdomen/Pelvis CT 03/22/25 08:57 IMPRESSION: 1. Hypovascular 3.3 cm liver mass of the right hepatic lobe. Recommend correlation with MRI of the abdomen without and with contrast for further assessment. Cannot exclude malignancy. 2: Mild thickening of the distal esophagus, suspicious for esophagitis. <Reji Reynoso MD - Last Filed: 03/22/25 10:30> ECG Data EKG #1: ECG completion date: 03/22/25 <Aleksandr Wilder MD - Last Filed: 03/22/25 06:57> ECG completion time: 06:52 <Aleksandr Wilder MD - Last Filed: 03/22/25 06:57> Interpretation: Sinus tachycardia. Normal axis. Poor R-wave progression in anterior leads. No ST elevation. <Aleksandr Wilder MD - Last Filed: 03/22/25 06:57> Critical Care Time Critical Care Time Critical Care Time: No <Reji Reynoso MD - Last Filed: 03/22/25 10:30> Discharge Plan Discharge Clinical Impression: Liver mass, Vomiting alone, Drug side effects <Aleksandr Wilder MD - Last Filed: 03/22/25 06:57> Patient Disposition: Home <Aleksandr Wilder MD - Last Filed: 03/22/25 06:57> Condition: Stable <Aleksandr Wilder MD - Last Filed: 03/22/25 06:57> Instructions: Acute Nausea and Vomiting (DC) <Aleksandr Wilder MD - Last Filed: 03/22/25 06:57> Additional Instructions: Return if symptoms are worsening , call your family physician for appointment, take Tylenol as as needed for aches and pain, continue home medications. CT scan of the abdomen and pelvis today showed that you have liver mass, 3.3 cm requires further evaluation. MRI of the abdomen is recommended within 1-2 weeks. <Aleksandr Wilder MD - Last Filed: 03/22/25 06:57> Patient Language: Danish <Aleksandr Wilder MD - Last Filed: 03/22/25 06:57> Prescriptions: New ondansetron 4 mg tablet,disintegrating 4 mg PO Q4H PRN (Reason: nausea and vomiting) 3 Days Qty: 10 0RF prochlorperazine [Compazine] 25 mg suppository 25 mg RECTAL Q12H PRN (Reason: nausea and vomiting) Qty: 12 0RF No Action metformin 500 mg tablet 1,000 mg PO BID atorvastatin 20 mg tablet 20 mg sertraline 100 mg tablet 100 mg lisinopril 2.5 mg tablet 2.5 mg bupropion HCl 300 mg tablet extended release 24 hr 300 mg PO lisdexamfetamine [Vyvanse] 30 mg capsule insulin glargine [Lantus Solostar U-100 Insulin] 100 unit/mL (3 mL) insulin pen 44 unit SUBCUT BID lisdexamfetamine [Vyvanse] 10 mg capsule 50 mg Mounjaro 15 mg/0.5 mL pen injector 15 mg subcut WEEKLY <Aleksandr Wilder MD - Last Filed: 03/22/25 06:57> Follow-up/Referrals: Kory,JOEL Fortune [Primary Care Provider] - <Aleksandr Wilder MD - Last Filed: 03/22/25 06:57>
--- NOTE | 2025-03-22 06:42 | ECG_ITS ---
Test Date: 2025-03-22 06:52:09 Measurements Intervals [place] Rate: 111 P: 45 [place]: 157 QRS: 1 QRSD: 79 T: 28 QT: 322 QTc: 438 Interpretive Statements SINUS TACHYCARDIA POSSIBLE LEFT ATRIAL ENLARGEMENT POOR R WAVE PROGRESSION CONSIDER INFERIOR INFARCT, AGE INDETERMINATE BASELINE ARTIFACT- I, II, AVR, AVL, AVF, V1-V6 ABNORMAL ECG No previous ECG available for comparison Electronically Signed On 03-22-2025 07:22:25 CDT by Darryn Mackay D.O.
--- NOTE | 2025-03-22 06:44 | PC.NURSE ---
DR MONTALVO AT THE BEDSIDE
[2025-03-22] MEDS: LACTATED RINGERS 1,000 ML 999 ML IV CONT (07:02)
--- NOTE | 2025-03-22 07:02 | PC.NURSE ---
ATTEMPTED IV PLACEMENT X 2 WITH NO SUCCESS. ASKED JONATHAN DE LUNA TO ATTEMPT IV LINE PLACEMENT. REPORT HAS BEEN GIVEN TO KATHY DE LUNA
[2025-03-22] MEDS: METOCLOPRAMIDE HCL INJ 10 MG/2 ML VIAL IV PUSH (07:03)
--- OUTSIDE RECORDS SUMMARY | 2025-03-22 07:06 | XMS_ITS | Encounter Summary ---
Author Organization [facility] Address [address] [place] [address] Care Team Providers Care Stay Cutter Name Role Phone Perlita Peoples Primary Care Provider [phone] Encounter Details Date Type Department Care Team (Late st Contact Info) Description 03/28/2022 Conversion Orders Only [employer] [facility] [address] [place] [address] Social History Tobacco Use Types Packs/Day Years [...] on filedocumented in this encounter Care Teams Stay Cutter Relationship Specialty Start Date End Date Perlita Peoples PA [address] [place] [id number] PCP - General Physician Circuitry Negative Inspector 03/02/22 documented as of this encounter
--- OUTSIDE RECORDS SUMMARY | 2025-03-22 07:06 | XMS_ITS | Clinical Summary ---
Author Organization [facility] Address [address] [facility] [place] [address] Care Team Providers Care Brand Communications Manager Name Role Phone Unavailable Primary Care Provider Unavailabl e Allergies No known active allergies Medications Insulin NPH Human, Isophane, (HUMULIN N SC) Inject into the skin. Active metformin (FORTAMET) 1000 mg (OSM) 24 hr tablet Take 1,000 mg by mouth with breakfast. Active Pjmqgtil-Rom-Bm- FA ( VITAMINS PO) Take by mouth. [...] patient's age to complete this topic Insurance [facility] Member Subscriber Plan / Payer ( fective 2017-Present) Name:Maude Burnette Relation to Subscriber:Spouse Name:CHANTAL BURNETTE Date of :1982 Address: [address] [place] [address] Payer ID:[id number] (NAIC) Group ID:[id number] Type:Not on file Address: [facility] [id number] [place] [id number] [facility]
--- OUTSIDE RECORDS SUMMARY | 2025-03-22 07:06 | XMS_ITS | Clinical Summary ---
Author Organization [facility] Address [address] [place] [address] Care Team Providers Care It Technical Architect Name Role Phone Perlita Peoples Primary Care Provider +1- [phone] Allergies No known active allergies Medications buPROPion [...] - 145 mmol/L 02/05/2024 5:13 PM EDT [facility](CLIA# [id number]) Potassium 4.2 3.5 - 5.1 mmol/L 02/05/2024 5:13 PM EDT [facility](CLIA# [id number]) Comment:NO VISIBLE HEMOLYSIS Chloride 104 98 - 107 mmol/L 02/05/2024 5:13 PM EDT [facility](CLIA# [id number]) CO2 26 21 - 31 mmol/L 02/05/2024 5:13 PM EDT [facility](CLIA# [id number]) Anion Gap 8 6 - 14 mmol/L 02/05/2024 5:13 PM EDT [facility](CLIA# [id number]) Glucose, Random 123(H) 70 - 99 mg/dL 02/05/2024 5:13 PM EDT [facility](CLIA# [id number]) Blood Urea Nitrogen (BUN) 9 7 - 25 mg/dL 02/05/2024 5:13 PM EDT [facility](CLIA# [id number]) Creatinine 0.60 0.60 - 1.20 mg/dL 02/05/2024 5:13 PM EDT [facility](CLIA# [id number]) eGFR >90 >59 mL/min/1. 73m2 02/05/2024 5:13 PM EDT [facility](CLIA# [id number]) Comment: GFR estimated by CKD-EPI equations([facility] 2020). Recommend confirmation of Cr-based eGFR by using Cys-based eGFR and other filtration markers (if applicable) in complex cases and clinical decision-making, as needed. Albumin 4.1 3.5 - 5.7 g/dL 02/05/2024 5:13 PM EDT [facility](CLIA# [id number]) Total Protein 6.8 6.4 - 8.9 g/dL 02/05/2024 5:13 PM EDT [facility](CLIA# [id number]) Bilirubin, Total 0.2(L) 0.3 - 1.0 mg/dL 02/05/2024 5:13 PM EDT [facility](CLIA# [id number]) Alkaline Phosphatase (ALP) 71 34 - 104 U/L 02/05/2024 5:13 PM EDT [facility](CLIA# [id number]) Aspartate Aminotransferase (AST) 11(L) 13 - 39 U/L 02/05/2024 5:13 PM EDT [facility](CLIA# [id number]) Alanine Aminotransferase (ALT) 10 7 - 52 U/L 02/05/2024 5:13 PM EDT [facility](CLIA# [id number]) Calcium 8.8 8.6 - 10.3 mg/dL 02/05/2024 5:13 PM EDT [facility](CLIA# [id number]) BUN/Creatinine Ratio 01/08 5:13 PM EDT [facility](CLIA# [id number]) Comment:Creatinine is normal , ratio is not clinically indicated. Blood Venous structure / Unknown Venipuncture / Unknown 02/05/2024 8:58 AM EDT 02/05/2024 8:58 AM EDT us Maribel Ruvalcaba MD LAB BLOOD ORDERABLES Final Re sult [facility](CLIA# [id number]) [place] [address] from Last 3 Months or Most Recently Relevant to Health Maintenance Insurance [place] [employer] [place] [employer] Care Teams It Technical Architect Relationship Specialty Start Date End Date Perlita Peoples PA [address] [address] PCP - General Physician Joinery Machinist 03/02/22
--- OUTSIDE RECORDS SUMMARY | 2025-03-22 07:06 | XMS_ITS | Encounter Summary ---
Author Organization [employer] [facility] Address [address] [place] [address] Care Team Providers Care Staff Air Defense Officer Name Role Phone Perlita Peoples Primary Care Provider +1- [phone] Encounter Details Date Type Department Care Team (Late st Contact Info) Description 01/06/2023 Conversion Orders Only [employer] HISTORICAL DATA CONVERSIONS [address] [place] [address] Social History Tobacco Use Types Packs/Day Years [...] Score 0 01/06/2023 8:51 AM EDT Int, [facility] Incom ing Clinical Documentation Flowsheets Conversion 3 * Little interest or pleasure in doing things Answer Date of Assessment Author Not at all 01/06/2023 8:51 AM EDT [facility], [facility] Incoming Clinical Documentation Flowsheets Conversion 3 * Feeling down, depressed, or hopeless Answer Date of Assessment Author Not at all 01/06/2023 8:51 AM EDT [facility], [facility] Incoming Clinical Documentation Flowsheets Conversion 3 documented as of this encounter Plan of Treatment Not on file documented as of this encounter Visit Diagnoses Not on filedocumented in this encounter Care Teams Staff Air Defense Officer Relationship Specialty Start Date End Date Perlita Peoples PA [address] [address] PCP - General Physician Crystalizer 03/02/22 documented as of this encounter
--- OUTSIDE RECORDS SUMMARY | 2025-03-22 07:06 | XMS_ITS | Clinical Summary ---
Author Organization [facility] visits prior to 12/09/2023. [place] [address] Care Team Providers Care Dumpling Machine Operator Name Role Phone Perlita Peoples PA-C Primary [...] pur e alcohol) PHQ-2 Answer Date Recorded SDPA PHQ2 SCORE 0 09/13/2023 Sex and Gender [...] COLONOSCOPY 2024 INFLUENZA VACCINE 05/09/2025 Care Teams Dumpling Machine Operator Relationship Specialty Start Date End Date Perlita Peoples PA-C [address] [place] [address] PCP - General Physician Environmental Health And Safety Leader 03/02/22 Maribel Ruvalcaba MD [address] [place] [address] Oncology Physician Hematology and Oncology 03/26/22
--- OUTSIDE RECORDS SUMMARY | 2025-03-22 07:06 | XMS_ITS | Referral Summary ---
Author Organization [facility] Address [address] [place] [address] Care Team Providers Care Railroad Worker Name Role Phone Perlita Peoples Primary Care Provider +1- [phone] Allergies No known active allergies Medications buPROPion [...] EDT [facility](CLIA# [id number]) Potassium 4.2 3.5 - 5.1 mmol/L 02/05/2024 5:13 PM EDT [facility](CLIA# [id number]) Comment:NO VISIBLE HEMOLYSIS Chloride 104 98 - 107 mmol/L 02/05/2024 5:13 PM EDT [facility](CLIA# [id number]) CO2 26 21 - 31 mmol/L 02/05/2024 5:13 PM EDT [facility](CLIA# [id number]) Anion Gap 8 6 - 14 mmol/L 02/05/2024 5:13 PM EDT [facility](CLIA# [id number]) Glucose, Random 123(H) 70 - 99 mg/dL 02/05/2024 5:13 PM EDT [facility](CLIA# [id number]) Blood Urea Nitrogen (BUN) 9 7 - 25 mg/dL 02/05/2024 5:13 PM EDT [facility](CLIA# [id number]) Creatinine 0.60 0.60 - 1.20 mg/dL 02/05/2024 5:13 PM EDT [facility](CLIA# [id number]) eGFR >90 >59 mL/min/1. 73m2 02/05/2024 5:13 PM EDT [facility](CLIA# [id number]) Comment: GFR estimated by CKD-EPI equations([facility] 2020). Recommend confirmation of Cr-based eGFR by using Cys-based eGFR and other filtration markers (if applicable) in complex cases and clinical decision-making, as needed. Albumin 4.1 3.5 - 5.7 g/dL 02/05/2024 5:13 PM EDT [facility](CLIA# [id number]) Total Protein 6.8 6.4 - 8.9 g/dL 02/05/2024 5:13 PM EDT [facility](CLIA# [id number]) Bilirubin, Total 0.2(L) 0.3 - 1.0 mg/dL 02/05/2024 5:13 PM EDT [facility](CLIA# [id number]) Alkaline Phosphatase (ALP) 71 34 - 104 U/L 02/05/2024 5:13 PM EDT [facility](CLIA# [id number]) Aspartate Aminotransferase (AST) 11(L) 13 - 39 U/L 02/05/2024 5:13 PM EDT [facility](CLIA# [id number]) Alanine Aminotransferase (ALT) 10 7 - 52 U/L 02/05/2024 5:13 PM EDT [facility](CLIA# [id number]) Calcium 8.8 8.6 - 10.3 mg/dL 02/05/2024 5:13 PM EDT [facility](CLIA# [id number]) BUN/Creatinine Ratio 01/08 5:13 PM EDT [facility](CLIA# [id number]) Comment:Creatinine is normal , ratio is not clinically indicated. Blood Venous structure / Unknown Venipuncture / Unknown 02/05/2024 8:58 AM EDT 02/05/2024 8:58 AM EDT us Maribel Ruvalcaba MD LAB BLOOD ORDERABLES Final Re sult [facility](CLIA# [id number]) [place] [address] from Last 3 Months or Most Recently Relevant to Health Maintenance Insurance [place] [employer] [place] [employer] Care Teams Railroad Worker Relationship Specialty Start Date End Date Perlita Peoples PA [address] [place] [address] PCP - General Physician Communications Equipment Installer 03/02/22
--- OUTSIDE RECORDS SUMMARY | 2025-03-22 07:06 | XMS_ITS | Clinical Summary ---
Author Organization [facility] Address [address] [place] [address] Care Team Providers Care Metaphysicist Name Role Phone Unavailable Primary Care Provider [...] recurrent major depressive disorder, with psychotic features ([facility]) 11/11/2019 Generalized anxiety disorder 11/11/2019 Mixed obsessional thoughts and acts 11/11/2019 Posttraumatic stress disorder 11/06/2019 Assessment & Plan (11/06/2019 3:37 PM EST): Psychological condition is newly identified. Plan: Continue current treatment regimen. Referral to psychiatry. Psychological condition will be reassessed at the next regular appointment. Episode of recurrent major d epressive disorder ([facility] V24) 11/06/2019 Assessment & Plan (11/06/2019 [...] as needed. Plan was developed collaboratively. Insurance [place] Member Subscriber Plan / Payer (Ef fective 2019-Present) Name:Maude Feldman Relation to Subscriber:Self Name:Maude Feldman Payer ID:[id number] Group ID:Not on file Type:Medicaid Address: [address] [address] [place] [address]
--- OUTSIDE RECORDS SUMMARY | 2025-03-22 07:06 | XMS_ITS | Continuity of Care Document ---
Author Organization [email or web address] [facility] Address [address] [place] [address] Phone Care Team Providers Care Jboss Architect Name Role Phone Jennie Garcia Unavailable Unavailable Advance Directives Directive Yes / No Effective Date File Name No Information Encounters Encounter Description Practice Location Reason(s) For Visit Diagnoses Date Provider Providers Copied on Encounter [facility], [address], [place], [place], [id number], [place] tel:[phone] [place] No Information Radha Schneider. [address], [place], [place], [address]. tel:[phone] Family History Family Member Type Diagnosis Age At Onset No Information Payers Payer name Insurance type Covered alliance party ID Authorgeraldine kimble(s) Medicaid [facility] [id number] Social History Type Description Quantity Date Captured [...]
[2025-03-22 07:22] LABS: Hematocrit 43.5 % (35.0-49.0); Hemoglobin 14.6 g/dL (12.0-15.0); Immature Platelet Fraction Pct 1.2 % (1.0-7.0); Mean Corpuscular HGB Conc 33.6 g/dL (32-36); Mean Corpuscular Hemoglobin 29.6 pg (27.0-31.0); Mean Corpuscular Volume 88.1 fL (78.0-102.0); Mean Platelet Volume 9.5 fl (9.2-11.8); Platelet Count Result 646 K/mm3 (150-420); Red Blood Count 4.94 M/mm3 (4.20-5.40); Red Cell Distribution Width 12.9 % (11.6-14.4)
[2025-03-22 07:31] LABS: Alanine Aminotransferase 29 U/L (6-35); Albumin Level 4.6 g/dL (3.5-5.1); Alkaline Phosphatase 105 U/L (38-126); Anion Gap 13 mmol/L (4-12); Aspartate Amino Transferase 35 U/L (14-36); Bilirubin,Total 0.7 mg/dL (0.2-1.3); Blood Urea Nitrogen 15 mg/dL (7-17); Calcium 9.1 mg/dL (8.4-10.2); Carbon Dioxide 21 mmol/L (22-30); Chloride 103 mmol/L (98-107); Creatine Kinase 250 U/L (30-135); Estimated CRCL calculation 104 ml/min; Estimated Glomerular Filt Rate > 60; Glucose 206 mg/dL (65-110); Lipase 46 U/L (23-300); Osmolality Calculated 290 mOsm/kg (285-295); Potassium 3.6 mmol/L (3.4-5.0); Sodium 137 mmol/L (137-145); Total Protein 8.5 g/dL (6.3-8.2)
[2025-03-22] MEDS: ONDANSETRON INJ 4 MG/2 ML VIAL 8 MG IV PUSH (07:37)
[2025-03-22] MEDS: diphenhydrAMINE HCl INJ 50 MG/ML VIAL IV PUSH (07:39)
[2025-03-22 07:43] LABS: Troponin I < 0.012 ng/mL (0.000-0.034)
[2025-03-22 07:59] LABS: Basophils Absolute Auto 0.05 K/mm3 (0.00-0.10); Basophils Percent Auto 0.2 % (0.0-1.0); Eosinophils Absolute Auto 0.06 K/mm3 (0.02-0.50); Eosinophils Percent Auto 0.3 % (1.0-6.0); Immature Granulocyte Absolute 0.14 K/mm3 (0.00-0.00); Immature Granulocyte Percent A 0.6 % (0.0-0.0); Lymphocytes Absolute Auto 1.55 K/mm3 (1.10-4.50); Monocytes Absolute Auto 1.44 K/mm3 (0.10-0.90); Monocytes Percent Auto 6.5 % (2.0-11.0); Neutrophils Absolute Auto 18.86 K/mm3 (1.70-7.20); Neutrophils Percent Auto 85.4 % (50.0-70.0)
[2025-03-22 08:00] LABS: Schistocytes None Seen
[2025-03-22 08:03] LABS: Band Neutrophils Percent 0 % (0-6)
[2025-03-22 08:04] LABS: Platelet Estimate Increased (Adequate)
[2025-03-22 09:04] LABS: Add Urine Microscopic? YES; Appearance Urine Clear (Clear); Bilirubin Urine 2+ (Negative); Blood Urine 2+ (Negative); Color Urine Yellow (Yellow); Glucose Urine UA Negative (Negative); Ketones Urine 1+ (Negative); Leukocyte Esterase Ur Negative LEU/UL (Negative); Nitrate Urine Negative (Negative); Protein Urine 3+ (Negative); Specific Grav Ur >= 1.030 (1.010-1.020); Urobilinogen Urine 0.2 mg/dL (0.2-1.0)
[2025-03-22 09:12] LABS: WBC Urine 16-20 /hpf (0-3)
[2025-03-22 09:13] LABS: Bacteria Urine 1+ /hpf; Squamous Epithelial Cell Urine Many /hpf (Few)
[2025-03-22 09:14] LABS: White Blood Cell Casts Urine Present /lpf
[2025-03-22 09:54] LABS: Glucose Point of Care 224 mg/dl (65-105)
== END 2025-03-22 10:35 | disposition home or self-care (01) ==
PROVIDERS: Internal Medicine Critical Care Medicine; Emergency Provider Emergency Medicine; PCP Registered Nurse
DX: R16.0 Hepatomegaly, not elsewhere classified (principal); R11.10 Vomiting, unspecified; T50.905A Adverse effect of unspecified drugs, medicaments and biological substances, initial encounter; E11.9 Type 2 diabetes mellitus without complications; I10 Essential (primary) hypertension; Z79.84 Long term (current) use of oral hypoglycemic drugs; Z79.4 Long term (current) use of insulin; Z79.899 Other long term (current) drug therapy
CPT/HCPCS: 36415; 74177; 80053; 81001; 82550; 82948; 83605; 83690; 84484; 85025; 85055; 93005; 96361; 96374; 96375; 99284; J1200; J2405; J2765; J7120; Q9967

== ENCOUNTER 2025-04-10 12:36 | Outpatient (CLI) | payer OTHER, SELFPAY ==
--- NOTE | ~2025-04-10 | MR_ITS ---
EXAMINATION: MR abdomen wo/w con DATE: 04/14/2025 11:36 CDT INDICATION: Abnormal imaging. TECHNIQUE: Magnetic resonance imaging (MRI) of the abdomen was performed both prior to and following the administration of intravenous contrast utilizing standard liver mass protocol. COMPARISON: None. Reference is made to a CT examination of the abdomen and pelvis dated 03/22/2025 whi ch demonstrated a hypovascular 3.3 cm liver mass in the right hepatic lobe for which MRI was recommen ded. FINDINGS: Trace decreased signal intensity is detected on out of phase imaging, within the periphery of segment s 4 and 5 of the liver, suggesting focal fatty infiltration. No additional abnormal signal intensity or contrast enhancement is identified within the region of pr ior imaging concern (segments 4/5 of the liver). The liver is enlarged measuring 23 cm in longitudinal dimension. Punctate filling defects within the dependent portion of the base of the gallbladder, suggesting gall bladder stones. No abnormal signal intensity or filling defects are identified within the bilateral kidneys. Common bile duct and pancreatic duct dilated. Bowel loops are unremarkable. Spleen is unremarkable in signal intensity and size. IMPRESSION: Findings within segments 4/5 of the liver which suggest focal fatty infiltration, rather than a discr ete mass as described on CT examination. No additional abnormal signal intensity or contrast enhancement, as detailed above. Cholelithiasis without evidence of cholecystitis. Reviewed, dictated and finalized at location A. IMPRESSION: Findings within segments 4/5 of the liver which suggest focal fatty infiltratio n, rather than a discrete mass as described on CT examination. No additional abnormal signal intensity or contrast enhancement, as detailed ab ove. Cholelithiasis without evidence of cholecystitis.
--- OUTSIDE RECORDS SUMMARY | 2025-04-10 12:40 | XMS_ITS | Referral Summary ---
Author Organization [facility] Address [address] [place] [address] Care Team Providers Care Electron Beam Photo Mask Technician Name Role Phone Perlita Peoples Primary Care Provider +1- [phone] Allergies No known active allergies Medications buPROPion [...] - 145 mmol/L 02/05/2024 5:13 PM EDT [facility](CLIA# [id number]) Potassium 4.2 3.5 - 5.1 mmol/L 02/05/2024 5:13 PM EDT [facility](CLIA# [id number]) Comment:NO VISIBLE HEMOLYSIS Chloride 104 98 - 107 mmol/L 02/05/2024 5:13 PM EDT [facility](CLIA# [id number]) CO2 26 21 - 31 mmol/L 02/05/2024 5:13 PM EDT [facility](CLIA# [id number]) Anion Gap 8 6 - 14 mmol/L 02/05/2024 5:13 PM EDT [facility](CLIA# [id number]) Glucose, Random 123(H) 70 - 99 mg/dL 02/05/2024 5:13 PM EDT [facility](CLIA# [id number]) Blood Urea Nitrogen (BUN) 9 7 - 25 mg/dL 02/05/2024 5:13 PM EDT [facility](CLIA# [id number]) Creatinine 0.60 0.60 - 1.20 mg/dL 02/05/2024 5:13 PM EDT [facility](CLIA# [id number]) eGFR >90 >59 mL/min/1. 73m2 02/05/2024 5:13 PM EDT [facility](CLIA# [id number]) Comment: GFR estimated by CKD-EPI equations([facility] 2020). Recommend confirmation of Cr-based eGFR by using Cys-based eGFR and other filtration markers (if applicable) in complex cases and clinical decision-making, as needed. Albumin 4.1 3.5 - 5.7 g/dL 02/05/2024 5:13 PM EDT [facility](CLIA# [id number]) Total Protein 6.8 6.4 - 8.9 g/dL 02/05/2024 5:13 PM EDT [facility](CLIA# [id number]) Bilirubin, Total 0.2(L) 0.3 - 1.0 mg/dL 02/05/2024 5:13 PM EDT [facility](CLIA# [id number]) Alkaline Phosphatase (ALP) 71 34 - 104 U/L 02/05/2024 5:13 PM EDT [facility](CLIA# [id number]) Aspartate Aminotransferase (AST) 11(L) 13 - 39 U/L 02/05/2024 5:13 PM EDT [facility](CLIA# [id number]) Alanine Aminotransferase (ALT) 10 7 - 52 U/L 02/05/2024 5:13 PM EDT [facility](CLIA# [id number]) Calcium 8.8 8.6 - 10.3 mg/dL 02/05/2024 5:13 PM EDT [facility](CLIA# [id number]) BUN/Creatinine Ratio 01/08 5:13 PM EDT [facility](CLIA# [id number]) Comment:Creatinine is normal , ratio is not clinically indicated. Blood Venous structure / Unknown Venipuncture / Unknown 02/05/2024 8:58 AM EDT 02/05/2024 8:58 AM EDT us Maribel Ruvalcaba MD LAB BLOOD ORDERABLES Final Re sult [facility](CLIA# [id number]) [place] [address] from Last 3 Months or Most Recently Relevant to Health Maintenance Insurance [place] [employer] [place] [employer] Care Teams Electron Beam Photo Mask Technician Relationship Specialty Start Date End Date Perlita Peoples PA [address] [place] [address] PCP - General Physician Looping Machine Operator 03/02/22
--- OUTSIDE RECORDS SUMMARY | 2025-04-10 12:40 | XMS_ITS | Clinical Summary ---
Author Organization [facility] Address [address] [place] [address] Care Team Providers Care Hotel Assistant General Manager Name Role Phone Perlita Peoples Primary Care Provider +1- [phone] Allergies No known active allergies Medications buPROPion [...] Last Done Comments Comprehensive Annual Visit 1979 HIV Screening 1997 Hepatitis C Screening 1997 DTaP/Tdap/Td Vaccines (1 - Tdap) 1998 Hepatitis B Vaccines (1 of 3 - 19+ 3-dose series) 1998 Pneumococcal Vaccine: Pediatrics (0 to 5 years) and At-Risk Patients (6-49 Years) (1 of 2 - PCV) 1998 Cervical Cancer Screening 2000 PAP SMEAR 2000 HPV Vaccines (1 - 3-dose SCDM series) 2006 HPV/Cotest 2009 Breast Cancer Screening (Mammogram) 2019 COVID-19 Vaccine ( - season) 2024 CT Colonography 2024 Colonoscopy 2024 Colorectal Cancer Screening 2024 FIT-DNA 2024 FIT 2024 FOBT 2024 Sigmoidoscopy 2024 Depression Monitoring 08/06/2024 02/05/2024 Diabetes Screening 02/04/2025 02/05/2024, 1 , 01/06/2023, Additional history exists Influenza Vaccine (#1) 2025 Adult RSV (60+ Years or ) (1 [...] - 145 mmol/L 02/05/2024 5:13 PM EDT [facility](CLIA# [id number]) Potassium 4.2 3.5 - 5.1 mmol/L 02/05/2024 5:13 PM EDT [facility](CLIA# [id number]) Comment:NO VISIBLE HEMOLYSIS Chloride 104 98 - 107 mmol/L 02/05/2024 5:13 PM EDT [facility](CLIA# [id number]) CO2 26 21 - 31 mmol/L 02/05/2024 5:13 PM EDT [facility](CLIA# [id number]) Anion Gap 8 6 - 14 mmol/L 02/05/2024 5:13 PM EDT [facility](CLIA# [id number]) Glucose, Random 123(H) 70 - 99 mg/dL 02/05/2024 5:13 PM EDT [facility](CLIA# [id number]) Blood Urea Nitrogen (BUN) 9 7 - 25 mg/dL 02/05/2024 5:13 PM EDT [facility](CLIA# [id number]) Creatinine 0.60 0.60 - 1.20 mg/dL 02/05/2024 5:13 PM EDT [facility](CLIA# [id number]) eGFR >90 >59 mL/min/1. 73m2 02/05/2024 5:13 PM EDT [facility](CLIA# [id number]) Comment: GFR estimated by CKD-EPI equations([facility] 2020). Recommend confirmation of Cr-based eGFR by using Cys-based eGFR and other filtration markers (if applicable) in complex cases and clinical decision-making, as needed. Albumin 4.1 3.5 - 5.7 g/dL 02/05/2024 5:13 PM EDT [facility](CLIA# [id number]) Total Protein 6.8 6.4 - 8.9 g/dL 02/05/2024 5:13 PM EDT [facility](CLIA# [id number]) Bilirubin, Total 0.2(L) 0.3 - 1.0 mg/dL 02/05/2024 5:13 PM EDT [facility](CLIA# [id number]) Alkaline Phosphatase (ALP) 71 34 - 104 U/L 02/05/2024 5:13 PM EDT [facility](CLIA# [id number]) Aspartate Aminotransferase (AST) 11(L) 13 - 39 U/L 02/05/2024 5:13 PM EDT [facility](CLIA# [id number]) Alanine Aminotransferase (ALT) 10 7 - 52 U/L 02/05/2024 5:13 PM EDT [facility](CLIA# [id number]) Calcium 8.8 8.6 - 10.3 mg/dL 02/05/2024 5:13 PM EDT [facility](CLIA# [id number]) BUN/Creatinine Ratio 01/08 5:13 PM EDT [facility](CLIA# [id number]) Comment:Creatinine is normal , ratio is not clinically indicated. Blood Venous structure / Unknown Venipuncture / Unknown 02/05/2024 8:58 AM EDT 02/05/2024 8:58 AM EDT us Maribel Ruvalcaba MD LAB BLOOD ORDERABLES Final Re sult [facility](CLIA# [id number]) [place] [address] from Last 3 Months or Most Recently Relevant to Health Maintenance Insurance [place] [employer] [place] [employer] Care Teams Hotel Assistant General Manager Relationship Specialty Start Date End Date Perlita Peoples PA [address] [address] PCP - General Physician Bat Person 03/02/22
--- OUTSIDE RECORDS SUMMARY | 2025-04-10 12:40 | XMS_ITS | Clinical Summary ---
Author Organization [facility] Address [address] [place] [address] Care Team Providers Care Cashier Receptionist Name Role Phone Unavailable Primary Care Provider [...] recurrent major depressive disorder, without psychotic features (CMS & HHS-HCC) Take 2 Tabs by mouth 2 (two) [...] recurrent major depressive disorder, with psychotic features ([facility]) 11/11/2019 Generalized anxiety disorder 11/11/2019 Mixed obsessional thoughts and acts 11/11/2019 Posttraumatic stress disorder 11/06/2019 Assessment & Plan (11/06/2019 3:37 PM EST): Psychological condition is newly identified. Plan: Continue current treatment regimen. Referral to psychiatry. Psychological condition will be reassessed at the next regular appointment. Episode of recurrent major d epressive disorder ([facility] V24) 11/06/2019 Assessment & Plan (11/06/2019 3:43 [...] as needed. Plan was developed collaboratively. Insurance [place] MEDICAID Member Subscriber Plan / Payer (Ef fective 2019-Present) Name:Maude Feldman Relation to Subscriber:Self Name:Maude Feldman Payer ID:[id number] Group ID:Not on file Type:Medicaid Address: [address] [address] [place] [address]
--- OUTSIDE RECORDS SUMMARY | 2025-04-10 12:41 | XMS_ITS | Encounter Summary ---
Author Organization [employer] [facility] Address [address] [place] [address] Care Team Providers Care Secret Code Expert Name Role Phone Perlita Peoples Primary Care Provider +1- [phone] Encounter Details Date Type Department Care Team (Late st Contact Info) Description 01/06/2023 Conversion Orders Only [employer] HISTORICAL DATA CONVERSIONS [address] [place] [address] Social History Tobacco Use Types Packs/Day Years [...] Score 0 01/06/2023 8:51 AM EDT Int, [facility] Incom ing Clinical Documentation Flowsheets Conversion 3 * Little interest or pleasure in doing things Answer Date of Assessment Author Not at all 01/06/2023 8:51 AM EDT [facility], [facility] Incoming Clinical Documentation Flowsheets Conversion 3 * Feeling down, depressed, or hopeless Answer Date of Assessment Author Not at all 01/06/2023 8:51 AM EDT Int, [facility] Incoming Clinical Documentation Flowsheets Conversion 3 documented as of this encounter Plan of Treatment Not on file documented as of this encounter Visit Diagnoses Not on filedocumented in this encounter Care Teams Secret Code Expert Relationship Specialty Start Date End Date Perlita Peoples PA [address] [address] PCP - General Physician Dot Etcher 03/02/22 documented as of this encounter
--- OUTSIDE RECORDS SUMMARY | 2025-04-10 12:41 | XMS_ITS | Encounter Summary ---
Author Organization [facility] Address [facility] [place] [address] Care Team Providers Care Powder Truck Driver Name Role Phone Tong Horn NP [facility] Encounter Details Date Type Department Care Team (Latest Contact Info) Description 04/09/2025 Travel Social History Tobacco Use Types Packs/Day Years Used Date Smoking Tobacco: Never Assessed Comments No Sex and Gender Information Value Date Recorded Sex Assigned at Female 12/02/2024 11:57 AM BAG CHECKER Legal Sex Female 5:47 PM BAG CHECKER Gender Identity Female 04/02/2025 3:00 PM CDT Sexual Orientation Not on file documented as of this encounter Plan of Treatment Upcoming Encounters Date Type Department Care Team (Late st Contact Info) Description 11/05/2025 1:30 PM BAG CHECKER Appointment [facility] [address] [place] [address] Blake Pham MD [address] [place], [place] [id number] 11/05/2025 1:40 PM BAG CHECKER Office Visit [facility] [address] [place] [address] Blake Pham MD [address] [place], [place] [phone] documented as of this encounter Visit Diagnoses Not on filedocumented in this encounter Care Teams Powder Truck Driver Relationship Specialty Start Date End Date Tong Horn NP [address] [place] [phone] PCP - General Nurse Practitioner Family 12/02/24 documented as of this encounter
--- OUTSIDE RECORDS SUMMARY | 2025-04-10 12:41 | XMS_ITS | Encounter Summary ---
Author Organization [employer] Address [address] [place] [address] Care Team Providers Care Target Worker Name Role Phone Perlita Peoples Primary Care Provider [phone] Encounter Details Date Type Department Care Team (Late st Contact Info) Description 03/28/2022 Conversion Orders Only [facility] [address] [place] [address] Social History Tobacco Use Types Packs/Day Years [...] on filedocumented in this encounter Care Teams Target Worker Relationship Specialty Start Date End Date Perlita Peoples PA [address] [place] [phone] PCP - General Physician Range Aid 03/02/22 documented as of this encounter
--- OUTSIDE RECORDS SUMMARY | 2025-04-10 12:41 | XMS_ITS | Encounter Summary ---
Author Organization [facility] Address [facility] [place] [address] Care Team Providers Care Pet Sitting Name Role Phone Tong Horn NP Primary Care Provi yajaira Encounter Details Date Type Department Care Team (Late Contact Info) Description 04/09/2025 Orders Only [facility] [address] [place] [address] Blake Pham MD [address] [place], [place] [address] Social History Tobacco Use Types Packs/Day Years Used Date Smoking Tobacco: Never Assessed Comments No Sex and Gender Information Value Date Recorded Sex Assigned at Female 12/02/2024 11:57 AM ASSEMBLY TECHNICIAN Legal Sex Female 5:47 PM ASSEMBLY TECHNICIAN Gender Identity Female 04/02/2025 3:00 PM CDT Sexual Orientation Not on file documented as of this encounter Plan of Treatment Upcoming Encounters Date Type Department Care Team (Late Contact Info) Description 11/05/2025 1:30 PM ASSEMBLY TECHNICIAN Appointment [facility] [address] [place] [address] Blake Pham MD [address] [place], [place] [phone] 11/05/2025 1:40 PM ASSEMBLY TECHNICIAN Office Visit [facility] [address] [place] [address] Blake Pham MD [address] [place], [place] [address] documented as of this encounter Results * FERRITIN (04/09/2025 2:37 PM CDT) FERRITIN 20.8 8 - 252 NG/ML 04/09/2025 3:11 PM CDT [facility] 04/09/2025 2:37 PM CDT Blake Pham MD LABORATORY Final Result Performing Organization Address [facility]/ZIP Co de Phone Number [facility] [address] [place] [address], [place] [phone] * (ABNORMAL) IRON SAT PANEL (IRON,IBC,%SAT) (04/09/2025 2:37 PM CDT) Pathologist [facility] IRON 33(L) 50 - 170 MCG/DL 04/09/2025 3:31 PM CDT [facility] IRON BINDING CAPACITY 341 250 - 450 MCG/DL 04/09/2025 3:31 PM CDT [facility] IRON SATURATION 10 % 3:31 PM CDT [facility] Comment:REFERENCE RANGE NOT ESTABLISHED 04/09/2025 2:37 PM CDT Blake Pham MD LABORATORY Final Result Performing Organization Address [facility] Co de Phone Number [facility] [address] [place] [address], [place] [phone] * (ABNORMAL) CBC W/DIFF AUTOMATED (04/09/2025 2:37 PM CDT) WBC 9.20 4.00 - 10.80 x10'3/uL 04/09/2025 2:50 PM CDT [facility] RBC 4.09(L) 4.10 - 5.40 x10'6/uL 04/09/2025 2:50 PM CDT [facility] HGB 12.1 12.0 - 16.0 G/DL 04/09/2025 2:50 PM CDT [facility] HCT 36.7 36.0 - 47.0 % 04/09/2025 2:50 PM CDT [facility] MCV 89.7 78.0 - 100.0 FL 04/09/2025 2:50 PM CDT [facility] MCH 29.6 27.0 - 31.0 PG 04/09/2025 2:50 PM CDT [facility] MCHC 33.0 33.0 - 36.0 G/DL 04/09/2025 2:50 PM CDT [facility] RDW 12.8 11.5 - 14.5 % 04/09/2025 2:50 PM CDT [facility] PLT 498(H) 150 - 350 x10'3/uL 04/09/2025 2:50 PM CDT [facility] MPV 9.2 7.4 - 10.4 FL 04/09/2025 2:50 PM CDT [facility] CBC COMMENT NORMAL REFERENCE RANGE NOT ESTABLISHED FOR THE PROPORTIONAL LEUKOCYTE DIFFERENTIAL. 04/09/2025 2:50 PM CDT [facility] NEUTROPHILS % 67.2 % 04/09/2025 2:50 PM CDT [facility] LYMPHOCYTES % 23.7 % 04/09/2025 2:50 PM CDT [facility] MONOCYTES % 6.8 % 04/09/2025 2:50 PM CDT [facility] EOSINOPHILS % 1.6 % 04/09/2025 2:50 PM CDT [facility] BASOPHILS % 0.5 % 04/09/2025 2:50 PM CDT [facility] IMMATURE GRANS % 0.2 % 04/09/20 2:50 PM CDT [facility] NRBC % 0.0 % 04/09/2025 2:50 PM CDT [facility] ABS. NEUTROPHILS 6.17 1.60 - 8.30 x10'3/uL 04/09/2025 2:50 PM CDT [facility] ABS. LYMPHOCYTES 2.18 0.80 - 4.70 x10'3/uL 04/09/2025 2:50 PM CDT [facility] ABS. MONOCYTES 0.63 0.00 - 1.50 x10'3/uL 04/09/2025 2:50 PM CDT [facility] ABS. EOSINOPHILS 0.15 0.00 - 0.40 x10'3/uL 04/09/2025 2:50 PM CDT [facility] ABS. BASOPHILS 0.05 0.00 - 0.20 x10'3/uL 04/09/2025 2:50 PM CDT [facility] ABS. IMMATURE GRANULOCYTES 0.02 0.00 - 0.03 x10'3/uL 04/09/2025 2:50 PM CDT [facility] ABS. NUCLEATED RBC'S 0.00 0.00 - 0.01 x10'3/uL 04/09/2025 2:50 PM CDT [facility] 04/09/2025 2:37 PM CDT us Blake Omkar Pham MD LABORATORY Final Result [facility] [address] [phone] documented in this encounter Visit Diagnoses Diagnosis Thrombocythemia- Primary Essential thrombocythemia documented in this encounter Care Teams Pet Sitting Relationship Specialty Start Date End Date Tong Horn NP [address] [place] [phone] PCP - General Nurse Practitioner Family 12/02/24 documented as of this encounter
--- OUTSIDE RECORDS SUMMARY | 2025-04-10 12:41 | XMS_ITS | Clinical Summary ---
Author Organization [facility] visits prior to 12/09/2023. [place] [address] Care Team Providers Care Erector Operator Name Role Phone Perlita Peoples PA-C [...] pur e alcohol) PHQ-2 Answer Date Recorded SDIN PHQ2 SCORE 0 09/13/2023 Sex and Gender [...] COLONOSCOPY 2024 INFLUENZA VACCINE 05/09/2025 Care Teams Erector Operator Relationship Specialty Start Date End Date Perlita Peoples PA-C [address] [place] [address] PCP - General Physician Journeyman Powerhouse Operator 03/02/22 Maribel Ruvalcaba MD [address] [place] [address] Oncology Physician Hematology and Oncology 03/26/22
--- OUTSIDE RECORDS SUMMARY | 2025-04-10 12:41 | XMS_ITS | Clinical Summary ---
Author Organization [facility] Address [address] [facility] [place] [address] Care Team Providers Care Tub Rider Name Role Phone Unavailable Primary Care Provider Unavailabl e Allergies No known active allergies Medications Insulin NPH Human, Isophane, (HUMULIN N SC) Inject into the skin. Active metformin (FORTAMET) 1000 mg (OSM) 24 hr tablet Take 1,000 mg by mouth with breakfast. Active Volwlzpn-Oif-Ht- FA ( VITAMINS PO) Take by mouth. [...] patient's age to complete this topic Insurance [facility] Subscriber Plan / Payer ( fective 2017-Present) Name:Maude Burnette Relation to Subscriber:Spouse Name:CHNATAL BURNETTE Date of :1982 Address: [address] [place] [address] Payer ID:[id number] (NAIC) Group ID:[id number] Type:Not on file Address: [facility] [id number] [place] [phone] [facility]
--- OUTSIDE RECORDS SUMMARY | 2025-04-10 12:41 | XMS_ITS | Clinical Summary ---
Author Organization [facility] Address [facility] [place] [address] Care Team Providers Care Bilingual Legal Assistant Name Role Phone Jose F Mcgovern NP Primary Care Provi yajaira Medications atorvastatin (LIPITOR) 20 MG tablet Take 1 tablet (20 mg total) by mouth daily. Active buPROPion XL (WELLBUTRIN XL) 300 MG 24 hr tablet Take 1 tablet (300 mg total) by mouth daily. Active hydrOXYzine (ATARAX) 25 MG tablet Take 1 tablet (25 mg total) by mouth 2 (two) times daily as needed. 05/17/2024 Active insulin glargine (LANTUS) 100 UNIT/ML injection (VIAL) Act robert lisinopril (PRINIVIL) 10 MG tablet Take 1 tablet (10 mg total) by mouth daily. Active VYVANSE 50 MG capsule 03/09/2025 Active sertraline (ZOLOFT) 100 MG tablet Active Active Problems Problem Noted Date Diagnosed Date Thrombocythemia 04/09/2025 Encounters Date Type Department Care Team Description 04/09/2025 2:10 PM CDT Hospital Encounter [facility] [place] [address] Blake Pham MD Arrived 04/09/2025 1:00 PM CDT Initial Consult [facility] [place] [address] Blake Pham MD Consult 04/09/2025 Orders Only [facility] [place] [address] Blake Pham MD 04/09/2025 Orders Only [address] [place] [address] Blake Pham MD 04/09/2025 Orders Only [address] [place] [address] Blake Pham MD 04/09/2025 Travel from Last 3 Months Social History Tobacco Use Types Packs/Day Years Used Date Smoking Tobacco: Never Assessed Comments No Sex and Gender Information Value Date Recorded Sex Assigned at Female 12/02/2024 11:57 AM ARCHITECTURAL ASSOCIATE Legal Sex Female 5:47 PM ARCHITECTURAL ASSOCIATE Gender Identity Female 04/02/2025 3:00 PM CDT Sexual Orientation Not on file Plan of Treatment Upcoming Encounters Date Type Department Care Team (Late st Contact Info) Description 11/05/2025 1:30 PM ARCHITECTURAL ASSOCIATE Appointment [address] [place] [address] Blake Pham MD [address] [place] [address] 11/05/2025 1:40 PM ARCHITECTURAL ASSOCIATE Office Visit [address] [place] [address] Blake Pham MD [address] [place] [address] Health Maintenance Due Date Last Done Comments Cervical Cancer Screening Pa p Smear (Age 30 to 64) Every 3 Years 1979 Colorectal Cancer Screening Colonoscopy (10 Years) 1979 Annual Physical 1982 Hepatitis C 1997 DTaP, Tdap and Td Vaccines ( 1 - Tdap) 1998 Hepatitis B Vaccines (1 of 3 - 19+ 3-dose series) 1998 Cervical Cancer Screening Pa p with HPV Testing (Age 30 to 64) Every 5 Years 2009 Cervical Cancer Screening with HPV 2009 COVID-19 Vaccine (2023-2 5 season) 2024 Mammogram Screening 12/10/2026 12/10/2024 HPV Vaccines Aged Out No longer eligi ble based on patient's age to complete this topic Meningococcal B Vaccine Aged Out No l onger eligible based on patient's age to complete this topic Meningococcal Vaccine Aged Out No rupal roni eligible based on patient's age to complete this topic Pneumococcal Vaccine: Pediat rics (0 to 5 Years) and At-Risk Patients (6 to 49 Years) Aged Out No longer eligi ble based on patient's age to complete this topic RSV Immunizations Under 20 Months Aged Out No longer eligible based on patient's age to complete this topic Procedures Procedure Name Priority Date/Time Associated Diagnosis Comments FERRITIN Routine 04/09/2025 2:37 PM CDT Thrombocythemia IRON SAT PANEL (IRON,IBC,%SAT) Routine 04/09/2025 2:37 PM CDT Thrombocythemia CBC W/DIFF AUTOMATED Routine 04/09/2025 2:37 PM CDT Thrombocythemia MG SCREENING W CHRISTIANO TAYE DIGI Routine 12/10/2024 11:11 AM ARCHITECTURAL ASSOCIATE Visit for screening mammogram from Last 3 Months or Most Recently Relevant to Health Maintenance Results * (ABNORMAL) IRON SAT PANEL (IRON,IBC,%SAT) (04/09/2025 2:37 PM CDT) IRON 33(L) 50 - 170 MCG/DL 04/09/2025 3:31 PM CDT [facility] IRON BINDING CAPACITY 341 250 - 450 MCG/DL 04/09/2025 3:31 PM CDT [facility] IRON SATURATION 10 % 3:31 PM CDT [facility] Comment:REFERENCE RANGE NOT ESTABLISHED 04/09/2025 2:37 PM CDT us Blake Omkar Pham MD LABORATORY Final Result [facility] [address] [place] [address], * (ABNORMAL) CBC W/DIFF AUTOMATED (04/09/2025 2:37 PM CDT) WBC 9.20 4.00 - 10.80 x10'3/uL 04/09/2025 2:50 PM CDT [facility] RBC 4.09(L) 4.10 - 5.40 x10'6/uL 04/09/2025 2:50 PM CDT [facility] HGB 12.1 12.0 - 16.0 G/DL 04/09/2025 2:50 PM CDT [facility] HCT 36.7 36.0 - 47.0 % 04/09/2025 2:50 PM CDT [facility] MCV 89.7 78.0 - 100.0 FL 04/09/2025 2:50 PM CDT [facility] MCH 29.6 27.0 - 31.0 PG 04/09/2025 2:50 PM CDT [facility] MCHC 33.0 33.0 - 36.0 G/DL 04/09/2025 2:50 PM CDT [facility] RDW 12.8 11.5 - 14.5 % 04/09/2025 2:50 PM CDT [facility] PLT 498(H) 150 - 350 x10'3/uL 04/09/2025 2:50 PM CDT [facility] MPV 9.2 7.4 - 10.4 FL 04/09/2025 2:50 PM CDT [facility] CBC COMMENT NORMAL REFERENCE RANGE NOT ESTABLISHED FOR THE PROPORTIONAL LEUKOCYTE DIFFERENTIAL. 04/09/2025 2:50 PM CDT [facility] NEUTROPHILS % 67.2 % 04/09/2025 2:50 PM CDT [facility] LYMPHOCYTES % 23.7 % 04/09/2025 2:50 PM CDT [facility] MONOCYTES % 6.8 % 04/09/2025 2:50 PM CDT [facility] EOSINOPHILS % 1.6 % 04/09/2025 2:50 PM CDT [facility] BASOPHILS % 0.5 % 04/09/2025 2:50 PM CDT [facility] IMMATURE GRANS % 0.2 % 04/09/20 2:50 PM CDT [facility] NRBC % 0.0 % 04/09/2025 2:50 PM CDT [facility] ABS. NEUTROPHILS 6.17 1.60 - 8.30 x10'3/uL 04/09/2025 2:50 PM CDT [facility] ABS. LYMPHOCYTES 2.18 0.80 - 4.70 x10'3/uL 04/09/2025 2:50 PM CDT [facility] ABS. MONOCYTES 0.63 0.00 - 1.50 x10'3/uL 04/09/2025 2:50 PM CDT [facility] ABS. EOSINOPHILS 0.15 0.00 - 0.40 x10'3/uL 04/09/2025 2:50 PM CDT [facility] ABS. BASOPHILS 0.05 0.00 - 0.20 x10'3/uL 04/09/2025 2:50 PM CDT [facility] ABS. IMMATURE GRANULOCYTES 0.02 0.00 - 0.03 x10'3/uL 04/09/2025 2:50 PM CDT [facility] ABS. NUCLEATED RBC'S 0.00 0.00 - 0.01 x10'3/uL 04/09/2025 2:50 PM CDT [facility] 04/09/2025 2:37 PM CDT us Blake Omkar Pham MD LABORATORY Final Result [facility] [address] [place] [address], * FERRITIN (04/09/2025 2:37 PM CDT) FERRITIN 20.8 8 - 252 NG/ML 04/09/2025 3:11 PM CDT [facility] 04/09/2025 2:37 PM CDT Blake Pham MD LABORATORY Final Result [facility] [address] [place] [address] [place] [address], * MG SCREENING W CHRISTIANO TAYE DIGI (12/10/2024 11:11 AM ARCHITECTURAL ASSOCIATE) Anatomical Region Laterality Modality Breast Bilateral Mammography 12/18/2024 3:18 PM CDT Impressions 12/18/2024 3:19 PM CDT IMPRESSION: No suspicious change since the previous exams. Recommendation: 1: Routine Screening Bilateral in 1 Year Assessment: ACR BI-RADS 2 - BENIGN FINDING(S) Ordered By: JOSE F MCGOVERN Interpreted By: Shahriar Overton MD, 12/18/2024 3:18 PM Narrative 12/18/2024 3:[address] PM [address]T [address] [place] [id number] Examination: Digital screening mammogram with CAD. Clinical history: Asymptomatic patient presents for routine screening. Comparison: 08/15/2023, 08/09/2022, 08/06/2021, 08/04/2020, 07/16/2019. Technique: Bilateral digital mammograms. The exam was interpreted with the use of a computer-aided detection (CAD) system. Additional 3-D tomosynthesis images were acquired. Tissue density: There are scattered areas of fibroglandular density. Findings: The breast tissue contains scattered fibroglandular densities. Benign-appearing calcification noted. Focal asymmetric glandular opacity medially on the right CC view has been chronically present and has decreased in conspicuity since 2019. No suspicious mass, microcalcification or area of architectural distortion can be identified. From a mammographic standpoint, routine followup in one year would seem adequate. Jose F Mcgovern CLINICAL DIETETIC TECHNICIAN MAMMO Fin al Result from Last 3 Months or Most Recently Relevant to Health Maintenance Insurance [employer] Care Teams Bilingual Legal Assistant Relationship Specialty Start Date End Date Jose F Mcgovern NP [address] [place] [phone] PCP - General Nurse Practitioner Family 12/02/24
--- OUTSIDE RECORDS SUMMARY | 2025-04-10 12:41 | XMS_ITS | Encounter Summary ---
Author Organization [facility] Address [facility] [place] [address] Care Team Providers Care Infection Prevention Practitioner Name Role Phone Tong Horn NP Primary Care Provi yajaira Encounter Details Date Type Department Care Team (Late st Contact Info) Description 04/09/2025 Orders Only [place] [address] [place] [address] Blake Pham MD [address] [place], [place] [address] Social History Tobacco Use Types Packs/Day Years Used Date Smoking Tobacco: Never Assessed Comments No Sex and Gender Information Value Date Recorded Sex Assigned at Female 12/02/2024 11:57 AM SUSPECT ARTIST SUPERVISOR Legal Sex Female 5:47 PM SUSPECT ARTIST SUPERVISOR Gender Identity Female 04/02/2025 3:00 PM CDT Sexual Orientation Not on file documented as of this encounter Plan of Treatment Upcoming Encounters Date Type Department Care Team (Late st Contact Info) Description 11/05/2025 1:30 PM SUSPECT ARTIST SUPERVISOR Appointment [facility] [address] [place] [address] Blake Pham MD [address] [place], [place] [phone] 11/05/2025 1:40 PM SUSPECT ARTIST SUPERVISOR Office Visit [facility] [address] [place] [address] Blake Pham MD [address] [place], [place] [address] Scheduled Orders Name Type Priority Associated Diagnoses Orde r Schedule CBC W/DIFF AUTOMATED Lab Routine Thrombocythemia Expected: 11/05/2025, Expires: 04/09/2026 COMPREHENSIVE METABOLIC PANEL Lab Routine Thrombocythemia Expected: 11/05/2025, Expires: 04/09/2026 IRON SAT PANEL (IRON,IBC,%SAT) Lab Routine Thrombocythemia Expected: 11/05/2025, Expires: 04/09/2026 FERRITIN Lab Routine Thrombocythemia Expected: 11/05/2025, Expires: 04/09/2026 documented as of this encounter Visit Diagnoses Diagnosis Thrombocythemia- Primary Essential thrombocythemia documented in this encounter Care Teams Infection Prevention Practitioner Relationship Specialty Start Date End Date Tong Horn NP [address] [place] [phone] PCP - General Nurse Practitioner Family 12/02/24 documented as of this encounter
--- OUTSIDE RECORDS SUMMARY | 2025-04-10 12:41 | XMS_ITS | Encounter Summary ---
Author Organization [facility] Address [facility] [place] [address] Care Team Providers Care Assignment Officer Name Role Phone Tong Horn NP Primary Care Provi yajaira Encounter Details Date Type Department Care Team (Late st Contact Info) Description 04/09/2025 2:10 PM CDT Hospital Encounter [facility] [address] [place] [address] Blake Pham MD [address] [place] [address] Arrived Social History Tobacco Use Types Packs/Day Years Used Date Smoking Tobacco: Never Assessed Comments No Sex and Gender Information Value Date Recorded Sex Assigned at Female 12/02/2024 11:57 AM SECURITY MESSENGER Legal Sex Female 5:47 PM SECURITY MESSENGER Gender Identity Female 04/02/2025 3:00 PM CDT Sexual Orientation Not on file documented as of this encounter Plan of Treatment Upcoming Encounters Date Type Department Care Team (Late Contact Info) Description 11/05/2025 1:30 PM SECURITY MESSENGER Appointment [facility] [address] [place] [address] Blake Pham MD [address], [place] [phone] 11/05/2025 1:40 PM SECURITY MESSENGER Office Visit [facility] [address] [place] [address] Blake Pham MD [address] [place] [address] Pending Results Name Type Priority Associated Diagnoses Date /Time MISCELLANEOUS LAB TEST Lab Routine Thrombocythemia 04/09/2025 2:37 PM CDT MISCELLANEOUS LAB TEST Lab Routine Thrombocythemia 04/09/2025 2:37 PM CDT Scheduled Orders Name Type Priority Associated Diagnoses Orde r Schedule MISCELLANEOUS LAB TEST Lab Routine Thrombocythemia Once for 1 Occurrences starting 04/09/2025 until 04/09/2025 MISCELLANEOUS LAB TEST Lab Routine Thrombocythemia Once for 1 Occurrences starting 04/09/2025 until 04/09/2025 documented as of this encounter Procedures Procedure Name Priority Date/Time Associated Diagnosis Comments IRON SAT PANEL (IRON,IBC,%SAT) Routine 04/09/2025 2:37 PM CDT Thrombocythemia CBC W/DIFF AUTOMATED Routine 04/09/2025 2:37 PM CDT Thrombocythemia FERRITIN Routine 04/09/2025 2:37 PM CDT Thrombocythemia documented in this encounter Results * FERRITIN (04/09/2025 2:37 PM CDT) FERRITIN 20.8 8 - 252 NG/ML 04/09/2025 3:11 PM CDT [facility] 04/09/2025 2:37 PM CDT us Blake Omkar Pham MD LABORATORY Final Result [facility] [place] [address], * (ABNORMAL) IRON SAT PANEL (IRON,IBC,%SAT) (04/09/2025 2:37 PM CDT) IRON 33(L) 50 - 170 MCG/DL 04/09/2025 3:31 PM CDT [facility] IRON BINDING CAPACITY 341 250 - 450 MCG/DL 04/09/2025 3:31 PM CDT [facility] IRON SATURATION 10 % 3:31 PM CDT [facility] Comment:REFERENCE RANGE NOT ESTABLISHED 04/09/2025 2:37 PM CDT Blake Omkar Pham MD LABORATORY Final Result [facility] [address] [place] [address], * (ABNORMAL) CBC W/DIFF AUTOMATED (04/09/2025 2:37 PM CDT) WBC 9.20 4.00 - 10.80 x10'3/uL 04/09/2025 2:50 PM CDT [facility] RBC 4.09(L) 4.10 - 5.40 x10'6/uL 04/09/2025 2:50 PM CDT [facility] HGB 12.1 12.0 - 16.0 G/DL 04/09/2025 2:50 PM CDT [facility] HCT 36.7 36.0 - 47.0 % 04/09/2025 2:50 PM CDT [facility] MCV 89.7 78.0 - 100.0 FL 04/09/2025 2:50 PM CDT [facility] MCH 29.6 27.0 - 31.0 PG 04/09/2025 2:50 PM CDT [facility] MCHC 33.0 33.0 - 36.0 G/DL 04/09/2025 2:50 PM CDT [facility] RDW 12.8 11.5 - 14.5 % 04/09/2025 2:50 PM CDT [facility] PLT 498(H) 150 - 350 x10'3/uL 04/09/2025 2:50 PM CDT [facility] MPV 9.2 7.4 - 10.4 FL 04/09/2025 2:50 PM CDT [facility] CBC COMMENT NORMAL REFERENCE RANGE NOT ESTABLISHED FOR THE PROPORTIONAL LEUKOCYTE DIFFERENTIAL. 04/09/2025 2:50 PM CDT [facility] NEUTROPHILS % 67.2 % 04/09/2025 2:50 PM CDT [facility] LYMPHOCYTES % 23.7 % 04/09/2025 2:50 PM CDT [facility] MONOCYTES % 6.8 % 04/09/2025 2:50 PM CDT [facility] EOSINOPHILS % 1.6 % 04/09/2025 2:50 PM CDT [facility] BASOPHILS % 0.5 % 04/09/2025 2:50 PM CDT [facility] IMMATURE GRANS % 0.2 % 04/09/20 2:50 PM CDT [facility] NRBC % 0.0 % 04/09/2025 2:50 PM CDT [facility] ABS. NEUTROPHILS 6.17 1.60 - 8.30 x10'3/uL 04/09/2025 2:50 PM CDT [facility] ABS. LYMPHOCYTES 2.18 0.80 - 4.70 x10'3/uL 04/09/2025 2:50 PM CDT [facility] ABS. MONOCYTES 0.63 0.00 - 1.50 x10'3/uL 04/09/2025 2:50 PM CDT [facility] ABS. EOSINOPHILS 0.15 0.00 - 0.40 x10'3/uL 04/09/2025 2:50 PM CDT [facility] ABS. BASOPHILS 0.05 0.00 - 0.20 x10'3/uL 04/09/2025 2:50 PM CDT [facility] ABS. IMMATURE GRANULOCYTES 0.02 0.00 - 0.03 x10'3/uL 04/09/2025 2:50 PM CDT [facility] ABS. NUCLEATED RBC'S 0.00 0.00 - 0.01 x10'3/uL 04/09/2025 2:50 PM CDT [facility] 04/09/2025 2:37 PM CDT us Blake Omkar Pham MD LABORATORY Final Result [facility] [address] [place] [address], documented in this encounter Visit Diagnoses Diagnosis Thrombocythemia Essential thrombocythemia documented in this encounter Care Teams Assignment Officer Relationship Specialty Start Date End Date Tong Horn NP [address] [place] [phone] PCP - General Nurse Practitioner Family 12/02/24 documented as of this encounter
--- OUTSIDE RECORDS SUMMARY | 2025-04-10 12:41 | XMS_ITS | Encounter Summary ---
Author Organization [facility] Address [facility] [place] [address] Care Team Providers Care Complaint Supervisor Name Role Phone Tong Horn NP Primary [facility] Reason for Visit * Reason Comments Consult Encounter Details Date Type Department Care Team (Late Contact Info) Description 04/09/2025 1:00 PM CDT Initial Consult [place] [address] [place] [address] Blake Pham MD [address] [place], [place] [address] Consult Social History Tobacco Use Types Packs/Day Years Used Date Smoking Tobacco: Never Assessed Comments No Sex and Gender Information Value Date Recorded Sex Assigned at Female 12/02/2024 11:57 AM BUTTON DECORATING MACHINE OPERATOR Legal Sex Female 5:47 PM BUTTON DECORATING MACHINE OPERATOR Gender Identity Female 04/02/2025 3:00 PM CDT Sexual Orientation Not on file documented as of this encounter Plan of Treatment Upcoming Encounters Date Type Department Care Team (Late Contact Info) Description 11/05/2025 1:30 PM BUTTON DECORATING MACHINE OPERATOR Appointment [facility] [address] [place] [address] Blake Pham MD [address], [place] [phone] 11/05/2025 1:40 PM BUTTON DECORATING MACHINE OPERATOR Office Visit [facility] [address] [place] [address] Blake Pham MD [address] [place] [address] documented as of this encounter Visit Diagnoses Diagnosis Thrombocythemia [D75.839]- Primary Essential thrombocythemia documented in this encounter Care Teams Complaint Supervisor Relationship Specialty Start Date End Date Tong Horn NP [address] [place] [phone] PCP - General Nurse Practitioner Family 12/02/24 documented as of this encounter
--- OUTSIDE RECORDS SUMMARY | 2025-04-10 12:41 | XMS_ITS | Encounter Summary ---
Author Organization [facility] Address [facility] [place] [address] Care Team Providers Care Clipper Operator Name Role Phone Tong Horn NP Primary Care Provi yajaira Encounter Details Date Type Department Care Team (Late st Contact Info) Description 04/09/2025 Orders Only [place] [address] [place] [address] Blake Pham MD [address], [place] [phone] Social History Tobacco Use Types Packs/Day Years Used Date Smoking Tobacco: Never Assessed Comments No Sex and Gender Information Value Date Recorded Sex Assigned at Female 12/02/2024 11:57 AM SHEAR TENDER Legal Sex Female 5:47 PM SHEAR TENDER Gender Identity Female 04/02/2025 3:00 PM CDT Sexual Orientation Not on file documented as of this encounter Plan of Treatment Upcoming Encounters Date Type Department Care Team (Late st Contact Info) Description 11/05/2025 1:30 PM SHEAR TENDER Appointment [facility] [address] [place] [address] Blake Pham MD [address], [place] [phone] 11/05/2025 1:40 PM SHEAR TENDER Office Visit [facility] [address] [place] [address] Blake Pham MD [address], [place] [phone] Pending Results Name Type Priority Associated Diagnoses Date /Time MISCELLANEOUS LAB TEST Lab Routine Thrombocythemia 04/09/2025 2:37 PM CDT MISCELLANEOUS LAB TEST Lab Routine Thrombocythemia 04/09/2025 2:37 PM CDT Scheduled Orders Name Type Priority Associated Diagnoses Orde r Schedule MISCELLANEOUS LAB TEST Lab Routine Thrombocythemia Expected: 04/09/2025, Expires: 04/09/2026 MISCELLANEOUS LAB TEST Lab Routine Thrombocythemia Expected: 04/09/2025, Expires: 04/09/2026 documented as of this encounter Visit Diagnoses Diagnosis Thrombocythemia- Primary Essential thrombocythemia documented in this encounter Care Teams Clipper Operator Relationship Specialty Start Date End Date Tong Horn NP [address] [place] [phone] PCP - General Nurse Practitioner Family 12/02/24 documented as of this encounter
== END 2025-04-10 12:37 | disposition home or self-care (01) ==
LOC: CHSIMG 12:38
PROVIDERS: PCP Registered Nurse; Visit Provider Registered Nurse
DX: R16.0 Hepatomegaly, not elsewhere classified (principal); K80.20 Calculus of gallbladder without cholecystitis without obstruction
CPT/HCPCS: 74183